=== PATIENT | female | born 1935 | race Caucasian/White ===

== ENCOUNTER 2016-07-07 01:21 | Emergency (ER) | payer MEDICARE, OTHER ==
[~2016-07-07] VITALS: Ht 160 cm; Wt 61.4 kg
[2016-07-07] VITALS (15 sets, daily range): BP systolic 70–139; BP diastolic 39–76; PULSE 48–104; RESP 12–16; O2SAT 95–98
[~2016-07-07 01:21] MED LIST: Diltiazem Hcl PO; FURO-128 PO; METO100T3 PO; MULT-56 PO; RIVA10TA PO; [UNRECOGNIZED DRUG - CODE] PO
[2016-07-07] MEDS ORDERED: Atropine 1 mg/10 mL (Code) Syringe ONE (01:32)
--- NOTE | 2016-07-07 01:32 | ED.REPORT ---
HPI-Dyspnea / Wheezing Date of Service Jul 07, 2016 ED Provider: Shelly Bedolla MD This is a 80 year old female with a history of CHF and atrial fibrillation with RVR brought to the ED by EMS complaining of generalized weakness that began 18 hours ago. Pt states she was unable to walk due to weakness. Also reports SOB with ambulation, chills, and bilateral lower extremity swelling that that began one week ago. Denies chest pain, dizziness, lightheadedness, change LOC, nausea , vomiting, or diaphoresis. En route pt was bradycardic at rate of 20-30s. Nursing Notes Stated Complaint: DYSPNEA Nursing Notes Reviewed: Yes Allergies: Coded Allergies: No Known Allergies (Unverified Allergy, Unknown, 06/22/14) Scheduled ([Diltiazem Hcl]) 180 MG CAP.ER.24H 360 MG PO DAILY Cyanocobalamin (Vitamin B-12) 500 Mcg Tab 1,000 MCG PO DAILY Furosemide (Lasix) 40 Mg Tablet 40 MG PO DAILY Metoprolol Tartrate (Metoprolol Tartrate) 100 Mg Tablet 100 MG PO BID Multivitamin (Daily Vitamin) 1 Each Tablet 1 EACH PO DAILY Rivaroxaban (Xarelto) 10 Mg Tablet 10 MG PO DAILY General Time Seen by MD: 01:31 Chief Complaint Shortness of breath Hx Obtained From: Patient Arrived By: Ambulance Sudden in Onset?: Yes Onset Occurred: 17 - 20 hours ago Symptom Duration: Since onset Severity: Current: No pain currently Pertinent Negative: Pt denies other symptoms Recent Healthcare: No recent doctor visit, No recent hospitalization Similar Sx Previous: No Past Medical History Past Medical History A-fib with RVR hypothyroidism hypertension CHRISTEL Reports: Congestive heart failure Past Surgical History Denies Smoking History Unknown if Ever Smoker Ambulatory Status Independent Review of Systems Constitutional: Reports: Chills, Weakness - generalized, Denies: Fever Respiratory: Reports: Shortness of breath, Denies: Non-productive cough Cardiovascular: Denies: Chest pain Skin: Denies Diaphoresis Complete sys rev & neg: except as marked. Neurologic: Denies: Change LOC, Dizziness, Lightheaded, Syncope Physical Exam Initial Vital Signs Vital Signs (First) Date Time Temp Pulse Resp B/P Pulse Ox O2 Delivery O2 Flow Rate FiO2 07/07/16 01:33 36.2 52 15 70/54 97 Nasal Cannula 2 - Initial VS: Reviewed Head / Eyes: Atraumatic, Normocephalic, PERRL ENT: Mucous membranes moist, Conjunctiva normal, No scleral icterus Skin: Warm, Dry, No cyanosis Neurologic: Alert, Oriented, Nonfocal Psychiatric: Mood/affect normal, Behavior normal, Normal thought content General/Constitutional: Awake, Alert Neck: Atraumatic, Supple, No meningismus, Full range of motion, No swelling, Non-tender, No masses Respiratory / Chest: Breath sounds NL, Breath sounds = bilat, No respiratory distress, No rales, No rhonchi, No wheezing, No retractions, No stridor Cardiovascular: No murmurs Heart Rate / Rhythm: Positive: Bradycardia Lower Ext Edema: Positive: Bilateral 1+ Interpretation & Diagnostics Lab Results Interpretation Result Diagram: 07/07/16 0141 07/07/16 0141 Test 07/07/16 01:41 White Blood Count 9.6th/mm3 (3.8-10.1) Red Blood Count 3.63mil/mm3 (3.90-5.20) Hemoglobin 11.0g/dL (12.0-15.6) Hematocrit 34.2% (35.0-46.0) Mean Corpuscular Volume 94.2fL (81-100) Mean Corpuscular Hemoglobin 30.3pg (27.0-35.0) Mean Corpuscular Hemoglobin Concent 32.2% (32.0-37.0) Red Cell Distribution Width 14.5% (12.3-15.4) Platelet Count 271bil/L (150-400) Neutrophils (%) (Auto) 65.4% (40-74) Lymphocytes (%) (Auto) 12.2% (14-46) Monocytes (%) (Auto) 11.0% (4-12) Eosinophils (%) (Auto) 10.2% (0-5) Basophils (%) (Auto) 0.9% (0-3) Prothrombin Time 11.9sec (8.1-12.5) Prothromb Time International Ratio 1.11ratio Sodium Level 134mEq/L (134-144) Potassium Level 5.0mEq/L (3.5-5.2) Chloride Level 94mEq/L (97-108) Carbon Dioxide Level 20mmol/L (18-29) Blood Urea Nitrogen 58mg/dL (8-27) Creatinine 3.88mg/dL (0.57-1.00) Estimat Glomerular Filtration Rate 16mL/min (>59) Glucose Level 157mg/dL (60-99) Calcium Level 9.5mg/dL (8.5-10.1) Total Bilirubin 0.6mg/dL (0.0-1.2) Aspartate Amino Transf (AST/SGOT) 35U/L (0-50) Alanine Aminotransferase (ALT/SGPT) 24U/L (0-32) Alkaline Phosphatase 132U/L (25-165) Troponin T 0.023ug/L (0.0-0.011) Pro-B-Type Natriuretic Peptide 7117pg/mL (0-738) Total Protein 7.8g/dL (6.4-8.4) Albumin 4.3g/dL (3.4-5.0) Digoxin Level 0.3nG/mL (0.9-2.0) ECG Interpretation ECG Interpretation: A-fib at a rate of 27 Time: 01:38 Interpreted by: ED physician ECG Interpretation: Atrial fibrillation at a rate of [address] elevation T-wave inversion in lead 3 and AVR X-Ray Chest Interpretation Chest Xray Interpretation: Cardiomegaly Interpretation / Wet Read by: Wet read ED physician NL X-Ray Chest Findings: No acute disease Re-Eval/Medical Decision Med Decision/Clinical Course 80-year-old female with extensive cardiac history including hypertension and CHF here with profound bradycardia and hypotension associated with shortness of breath. She had no associated chest pain and was mentating well. For this reason, I do not feel she needs to be transcutaneously paced as I do not think she will tolerated well, and I think that the sedation she would require for transcutaneous pacing would drop her pressure further. She was given atropine with no improvement of her symptoms, and then was started on dopamine with vast improvement of her vital signs. Her initial labs show a mildly elevated troponin, which could be the result of her new renal failure. Her potassium is normal at this time, so I do not feel the need to treat any electrolyte abnormality. Her CBC is unremarkable. I did discuss the case with , who did not recommend heparinizing her. We have no beds at our facility at this time, so I have transferred her to [facility]. She has been accepted by Dr. Champagne. She is amenable to transfer at this time. Since her vitals have stabilized on the dopamine, I feel that she is safe to transport by ALS and not helicopter. At this point, dropping a central line would delay her transfer to [facility]. I feel that this would further delay her care. Dr. Champagne is aware that she has only peripheral access at this time. Re-Evaluation/Progress #1: Time of Eval: 02:00 Re-Evaluation/Progress Note: Discussed need for admission, all questions addressed. Re-Evaluation/Progress #2: Time of Eval: 02:19 Re-Evaluation/Progress Note: HR 89 Consultation #1: Referral / Consult Name: Dennis Tang MD Consulted With: Cardiology Call Returned at: 01:42 Tire Servicer: Agrees with eval, Agrees with plan Consultation #2: Referral / Consult Name: Dennis Tang MD Consulted With: Cardiology Call Returned at: 02:49 [employer] Servicer: Agrees with eval, Agrees with plan Consultation #3: Call Returned at: 02:51 Note: Consult with [facility] transfer center Consultation #4: Call Returned at: 02:55 Note: Consult with Dr. Champagne at [facility], accepts transfer Counseled Regarding: Diagnosis, Lab results, Need for follow-up, Need for transfer Discharge & Departure Impression: Primary Impression: Bradycardia Additional Impressions: Hypotension Hypotension type: unspecified hypotension type Qualified Code: I95.9 - Hypotension, unspecified Cardiogenic shock Elevated troponin Disposition: Transfer, Acute Care Facility Receiving Hospital: [facility] Transfer Accepted at: 02:56 Patient Status: Stable, Stable for transfer Patient Informed: Yes Discharge Condition All VS Reviewed: Yes Condition: Stable Referrals: Dallas Caballero MD (PCP) Crit Care Except Billable Proc Time Spent: 30-74 minutes Services Performed: Patient management by me, Time spent at bedside, Reviewing test results, Reviewing imaging, Discussing patient care, Documentation in record, Time with fam/surrogate Scribe Attestation Portions of this note were transcribed by Alicia Pedersen. I, Dr. Bedolla personally performed the history, physical exam and medical decision-making; I reviewed and confirmed the accuracy of the information in the transcribed note. Signed by: chris Dumont. 07/06/2016, 02:00. Shelly Bedolla MD Jul 07, 2016 01:32 ALICIA PEDERSEN Jul 07, 2016 01:43
[2016-07-07 01:45] LABS: BASOPHILS % (AUTO) 0.9 % (0-3); EOSINOPHILS % (AUTO) 10.2 % (0-5); Mean Corpuscular Hemoglobin 30.3 pg (27.0-35.0); Mean Corpuscular Volume 94.2 fL (81-100); NEUTROPHILS % (AUTO) 65.4 % (40-74); Platelet Count 271 bil/L (150-400)
[2016-07-07] MEDS ORDERED: DOPamine 800 mg/250 mL D5W 800,000 MCG in IV Premix 1 EACH IV SCH (01:45)
[2016-07-07 02:02] LABS: TROPONIN T 0.023 ug/L (0.0-0.011)
[2016-07-07 03:38] LABS: INR 1.11 ratio
--- NOTE | 2016-07-07 09:15 | DRSVH ---
PROCEDURE: X-RAY CHEST ONE VIEW, PORTABLE ([id number]) INDICATIONS: shortness of breath TECHNIQUE: One view of the chest was acquired. COMPARISON: [facility], , CHEST 1VW (PORTABLE), 03/20/2014, 15:29. FINDINGS: Surgical changes and devices: None. Lungs and pleura: Mild edema is present and small left pleural effusion. No pneumothorax. Mediastinum: Mediastinal contours appear normal. Heart size is enlarged. Bones and chest wall: No suspicious bony lesions. Overlying soft tissues appear unremarkable. IMPRESSION: Mild pulmonary edema and small left pleural effusion. Dictated by: Vu Ling [facility] Interpreted: Andre Cadena MD on 07/07/2016 at 9:12 Transcribed by: LIZA on 07/07/2016 at 9:14 Approved by: Andre Cadena M.D. on 07/07/2016 at 9:57
== END 2016-07-07 04:03 | disposition short-term general hospital (02) ==
LOC: SED 01:21
DX: R00.1 Bradycardia, unspecified (principal); I95.9 Hypotension, unspecified; R57.0 Cardiogenic shock; R79.89 Other specified abnormal findings of blood chemistry; I11.0 Hypertensive heart disease with heart failure; I50.9 Heart failure, unspecified
CPT/HCPCS: 36415; 71010; 80053; 80162; 83880; 84439; 84443; 84484; 85025; 85610; 93005; 96374; 96375; 99291; J0461; J1265

== ENCOUNTER 2016-10-24 07:29 | Emergency (ER) | payer MEDICARE, OTHER ==
[~2016-10-24] VITALS: Ht 160 cm; Wt 68.0 kg
[2016-10-24] VITALS (8 sets, daily range): BP systolic 137–168; BP diastolic 84–105; PULSE 99–151; RESP 15–24; O2SAT 95–100
--- NOTE | 2016-10-24 07:43 | ED.REPORT ---
HPI-Trauma Minor / Fall Date of Service October 24, 2016 ED Provider: Padmini Romero MD Patient is an 81 year old female with a history of CHF, atrial fibrillation and hypertension who presents to the ED via EMS due to a ground level fall. Associated symptoms include non-cardiac chest pain and leg swelling. She denies losing consciousness, nausea, vomiting, fever, chills or shortness of breath. Patient describes the chest pain as dull and exacerbated with deep inhalation. The patient reports she has had leg swelling since last week. She states that while walking she tripped, fell and hit her chest. Nursing Notes Stated Complaint: FALL Chief Complaint: Dysrhythmia/Cardiac Nursing Notes Reviewed: Yes Allergies: Coded Allergies: No Known Allergies (Unverified Allergy, Unknown, 06/22/14) Scheduled ([Diltiazem Hcl]) 180 MG CAP.ER.24H 360 MG PO DAILY Cyanocobalamin (Vitamin B-12) 500 Mcg Tab 1,000 MCG PO DAILY Furosemide (Lasix) 40 Mg Tablet 40 MG PO DAILY Metoprolol Tartrate (Metoprolol Tartrate) 100 Mg Tablet 100 MG PO BID Multivitamin (Daily Vitamin) 1 Each Tablet 1 EACH PO DAILY Rivaroxaban (Xarelto) 10 Mg Tablet 10 MG PO DAILY General Time Seen by MD: 07:43 Chief Complaint Fall Hx Obtained From: Patient Arrived By: Ambulance Onset Occurred: Just prior to arrival Symptom Duration: Since onset Location: Chest Quality: Dull Associated with: Reports: Chest pain, Denies: Fever, Loss of consciousness, Nausea, Shortness of breath, Vomiting Recent Healthcare: Recent doctor visit Past Medical History Past Medical History A-fib with RVR hypothyroidism hypertension CHRISTEL Reports: Congestive heart failure Past Surgical History Denies Smoking History Unknown if Ever Smoker Ambulatory Status Independent Review of Systems Constitutional: Denies: Chills, Fever Respiratory: Denies: Non-productive cough, Shortness of breath Musculoskeletal: Reports: Extremity swelling (both legs) Neurologic: Denies: Change LOC Complete sys rev & neg: except as marked. Cardiovascular: Reports: Chest pain GI: Denies: Nausea, Vomiting Physical Exam Initial Vital Signs Vital Signs (First) Date Time Temp Pulse Resp B/P Pulse Ox O2 Delivery O2 Flow Rate FiO2 10/24/16 07:42 151 20 168/105 97 Room Air 10/24/16 08:22 Initial VS: Reviewed, Vital signs abnormal General/Constitutional: Awake, Alert, No acute distress Neck: Atraumatic, Full range of motion Head / Eyes: Atraumatic, Normocephalic, PERRL, EOMI RESPIRATORY/CHEST: right chest pain bibasilar rales Heart Rate / Rhythm: Positive: Irreg irregular rhythm Abdomen: Atraumatic, Soft, Non-tender Back: Atraumatic, Non-tender, No paraspinal tenderness Upper Extremity / MS: Atraumatic, Full range of motion LOWER EXTREMITIES: bilateral 3+ edema bruising to the left distal tibia Skin: Atraumatic, Color NL, No rash, Warm, Dry Neurologic: Oriented X3, Speech NL, No motor deficits, No sensory deficits Psychiatric: Affect NL, Mood NL Interpretation & Diagnostics Lab Results Interpretation Result Diagram: 10/24/16 0749 10/24/16 0749 Test 10/24/16 07:49 White Blood Count 12.2th/mm3 (3.8-10.1) Red Blood Count 4.09mil/mm3 (3.90-5.20) Hemoglobin 11.5g/dL (12.0-15.6) Hematocrit 35.9% (35.0-46.0) Mean Corpuscular Volume 87.8fL (81-100) Mean Corpuscular Hemoglobin 28.1pg (27.0-35.0) Mean Corpuscular Hemoglobin Concent 32.0% (32.0-37.0) Red Cell Distribution Width 16.8% (12.3-15.4) Platelet Count 383bil/L (150-400) Neutrophils (%) (Auto) 51.6% (40-74) Lymphocytes (%) (Auto) 10.3% (14-46) Monocytes (%) (Auto) 10.3% (4-12) Eosinophils (%) (Auto) 26.4% (0-5) Basophils (%) (Auto) 1.2% (0-3) Sodium Level 140mEq/L (134-144) Potassium Level 4.3mEq/L (3.5-5.2) Chloride Level 99mEq/L (97-108) Carbon Dioxide Level 23mmol/L (18-29) Blood Urea Nitrogen 34mg/dL (8-27) Creatinine 1.32mg/dL (0.57-1.00) Estimat Glomerular Filtration Rate 55mL/min (>59) Glucose Level 105mg/dL (60-99) Calcium Level 10.0mg/dL (8.5-10.1) Magnesium Level 2.3mg/dL (1.6-2.6) Total Bilirubin 0.7mg/dL (0.0-1.2) Aspartate Amino Transf (AST/SGOT) 26U/L (0-50) Alanine Aminotransferase (ALT/SGPT) 13U/L (0-32) Alkaline Phosphatase 235U/L (25-165) Troponin T < 0.010ug/L (0.0-0.011) Pro-B-Type Natriuretic Peptide 1998pg/mL (0-738) Total Protein 9.3g/dL (6.4-8.4) Albumin 4.6g/dL (3.4-5.0) ECG Interpretation ECG Interpretation: atrial fibrillation, rate 144 with increased QTc no acute changes Time: 07:52 Interpreted by: ED physician X-Ray Chest Interpretation Chest Xray Interpretation: IMPRESSION: No acute disease. Medial left apical opacity, technically non-specific. If clinically warranted, additional followup PA and lateral chest radiographs in 6 months could be performed to document stability and exclude neoplasm Chronic diffuse scarring/interstitial change. Cardiomegaly as before. Dictated by: Rakesh Montelongo M.D. on 10/24/2016 at 9:13 Approved by: Rakesh Montelongo M.D. on 10/24/2016 at 9:17 View: Portable, 1 view Interpretation / Wet Read by: Interpret - Radiologist Re-Eval/Medical Decision Med Decision/Clinical Course This is a chronically ill patient who had a mechanical fall. The patient is quite certain she did not pass out nor did she hit her head, she has felt it onto her chest and has right-sided chest pain. The patient did not take her morning medications. Her labs are all abnormal however they are improved for her since her last admission. The patient does not have any complaints of congestive heart failure. She has recently had some medication changes. The patient's atrial fibrillation was treated with her usual medications and came down to a reasonable level. The patient has been followed closely by her primary care physician. The patient does not have any complaints or signs of head trauma or neck or back trauma or extremity trauma. She is also certain that she has not had chest pain until after her fall. Re-Evaluation/Progress : Time of Eval: 09:37 Patient Status: Condition improved Re-Evaluation/Progress Note: Discussed plan for discharge. The patient understands and agrees to the plan for discharge. All questions were adderssed. Counseled Regarding: Diagnosis, Lab results, Need for follow-up, When/why to return to ED Discharge & Departure Impression: Primary Impression: Fall Encounter type: initial encounter Qualified Code: W19.XXXA - Unspecified fall, initial encounter Additional Impressions: Chronic atrial fibrillation Contusion of chest Encounter type: initial encounter Laterality: right Qualified Code: S20.211A - Contusion of right front wall of thorax, initial encounter Chronic CHF Congestive heart failure type: unspecified congestive heart failure type Qualified Code: I50.9 - Heart failure, unspecified Disposition: Home Discharge Condition All VS Reviewed: Yes Condition: Stable Additional Instructions: We gave you your normal medications of Lisinopril, Metoprolol and Lasix. Take your other medications as usual. You can take Tylenol 650mg up to 4x a day for you pain. Follow up with your primary care physician next week. Return to the emergency department if you develop any new or worsening symptoms including fever or shortness of breath. Referrals: Dallas Caballero MD (PCP) Deanna Attestation Portions of this note were transcribed by Ivette Zambrano. I, Dr. Romero personally performed the history, physical exam and medical decision-making; I reviewed and confirmed the accuracy of the information in the transcribed note. Signed by: Deanna Rebolledo, 10/24/16 and 6285 copies to: Dallas Caballero MD, Jena M MD October 24, 2016 07:43 Eladia Zambrano October 24, 2016 07:53
[2016-10-24] MEDS ORDERED: Furosemide 10 mg/mL 4 mL Inj IVPUSH ONE (07:50)
[2016-10-24 07:52] LABS: BASOPHILS % (AUTO) 1.2 % (0-3); EOSINOPHILS % (AUTO) 26.4 % (0-5); MONOCYTES % (AUTO) 10.3 % (4-12); Mean Corpuscular Hemoglobin 28.1 pg (27.0-35.0); Mean Corpuscular Volume 87.8 fL (81-100); NEUTROPHILS % (AUTO) 51.6 % (40-74); Platelet Count 383 bil/L (150-400)
[2016-10-24] MEDS: MeTOProlol 1 mg/mL 5 mL Inj IVPUSH SCH ×3 (08:07→08:28)
[2016-10-24 08:33] LABS: Magnesium 2.3 mg/dL (1.6-2.6)
[2016-10-24 08:41] LABS: TROPONIN T < 0.010 ug/L (0.0-0.011)
[2016-10-24] MEDS ORDERED: MeTOProlol 1 mg/mL 5 mL Inj IVPUSH ONE (09:05)
--- NOTE | 2016-10-24 09:19 | DRSVH ---
PROCEDURE: X-RAY CHEST, TWO VIEWS ([id number]) INDICATIONS: CHEST PAIN TECHNIQUE: 2 views of the chest were acquired. COMPARISON: [facility], CR, CHEST 1VW (PORTABLE), 03/20/2014, 15:29. [facility], CR, XR CHEST 1VW (PORTABLE), 07/07/2016, 1:57. FINDINGS: Surgical changes and devices: None. Lungs and pleura: No pleural effusions or pneumothorax. There is poorly defined, pleural-based or florence bpleural medial left apical opacity, which is technically nonspecific and measures 1 cm. This appears unchanged to slightly less conspicuous since the prior study dated 07/07/16 Chronic diffuse intersti tial changes Mediastinum: Mediastinal contours are normal. Heart size is enlarged as before. Bones and chest wall: No suspicious bony abnormalities. There is diffuse osteopenia, and the vertebr al bodies are not well-visualized on the lateral projection. Soft tissues appear unremarkable. IMPRESSION: No acute disease. Medial left apical opacity, technically non-specific. If clinically warranted, additional followup PA and lateral chest radiographs in 6 months could be performed to document stability and exclude neopl asm Chronic diffuse scarring/interstitial change. Cardiomegaly as before. Dictated by: Rakesh Montelongo M.D. on 10/24/2016 at 9:13 Approved by: Rakesh Montelongo M.D. on 10/24/2016 at 9:17
== END 2016-10-24 10:40 | disposition home or self-care (01) ==
LOC: SED 07:29 → EDBD 07:29 → EDUNIT# 07:29 → SED 10:40
DX: S20.211A Contusion of right front wall of thorax, initial encounter (principal); W01.198A Fall on same level from slipping, tripping and stumbling with subsequent striking against other object, initial encounter; Y93.01 Activity, walking, marching and hiking; Y92.89 Other specified places as the place of occurrence of the external cause; Y99.8 Other external cause status; M79.89 Other specified soft tissue disorders; I11.0 Hypertensive heart disease with heart failure; I50.9 Heart failure, unspecified; I48.2 Chronic atrial fibrillation; E03.9 Hypothyroidism, unspecified
CPT/HCPCS: 36415; 71020; 80053; 83735; 83880; 84484; 85025; 93005; 96374; 96375; 96376; 99285; J1940

== ENCOUNTER 2017-03-02 12:38 | Inpatient (IN) | payer MEDICARE, OTHER ==
[~2017-03-02] VITALS: Ht 161.9 cm; Wt 81.2 kg
[2017-03-02] VITALS (10 sets, daily range): BP systolic 123–146; BP diastolic 73–92; PULSE 128–160; RESP 16–31; O2SAT 94–98
[2017-03-02 13:22] LABS: BASOPHILS % (AUTO) 0.7 % (0-3); EOSINOPHILS % (AUTO) 36.5 % (0-5); MONOCYTES % (AUTO) 8.3 % (4-12); Mean Corpuscular Hemoglobin 28.2 pg (27.0-35.0); Mean Corpuscular Volume 88.8 fL (81-100); NEUTROPHILS % (AUTO) 45.8 % (40-74); Platelet Count 328 bil/L (150-400)
[2017-03-02 13:43] LABS: TROPONIN T < 0.010 ug/L (0.0-0.011)
[2017-03-02 13:53] LABS: Magnesium 2.1 mg/dL (1.6-2.6)
--- NOTE | 2017-03-02 14:13 | DRSVH ---
PROCEDURE: X-RAY LEFT FEMUR, TWO VIEWS ([id number]) INDICATIONS: PAIN/DISTAL ROTATION AND SHORTENING. TECHNIQUE: 2 views of the femur were acquired. COMPARISON: None. FINDINGS: Bones: There is a comminuted, displaced intertrochanteric fracture of the left femur. The femoral hea d remains articulated with the acetabulum. Visualized portions of the pelvis are intact. Visualized p ortions of the inferior femur are intact. Soft tissues: A circumscribed soft tissue calcification is present in the mid thigh. IMPRESSION: Displaced, comminuted, left intertrochanteric fracture. Dictated by: Debbie Anguiano M.D. on 03/02/2017 at 13:10 Approved by: Debbie Anguiano M.D. on 03/02/2017 at 13:11
--- NOTE | 2017-03-02 14:15 | DRSVH ---
PROCEDURE: X-RAY CHEST ONE VIEW, PORTABLE ([id number]) INDICATIONS: atrial fibrillation with rapid response TECHNIQUE: One view of the chest was acquired. COMPARISON: [facility], CR, XR CHEST 2VW, 10/24/2016, 8:46. FINDINGS: Surgical changes and devices: None. Lungs and pleura: There is prominence of the interstitium. No focal airspace opacities. No pleural ef fusion or pneumothorax. Mediastinum: There is a questionable lobulated soft tissue mass at the medial aspect of the left apex . Heart size is markedly enlarged. Bones and chest wall: No suspicious bony lesions. Overlying soft tissues appear unremarkable. IMPRESSION: 1. Cardiomegaly and interstitial prominence suspicious for fluid overload. 2. Questionable lobulated mass at the medial left apex. If further characterization is warranted, CT of the chest would be helpful to exclude neoplasm. Dictated by: Debbie Anguiano M.D. on 03/02/2017 at 13:11 Approved by: Debbie Anguiano M.D. on 03/02/2017 at 13:13
--- NOTE | 2017-03-02 14:18 | DRSVH ---
PROCEDURE: X-RAY LEFT HIP COMPLETE, MINIMUM TWO VIEWS ([id number]) INDICATIONS: PAIN/DISTAL ROTATION AND SHORTENING. TECHNIQUE: AP pelvis with lateral view(s) of the left hip(s). COMPARISON: [facility], CR, XR FEMUR 2VW LT, 03/02/2017, 13:37. FINDINGS: Bones: There is an intertrochanteric fracture with mild displacement. There are superior and inferio r pubic ramal fractures, and possible right pubic fracture at the pubic symphysis. No suspicious bon y lesions. Soft tissues: The visualized bowel gas pattern is normal. No suspicious soft tissue calcifications. IMPRESSION: 1. Intertrochanteric fracture of the left hip. In the absence of trauma, cannot exclude a pathologica l fracture. 2. Left superior and inferior pubic humeral fracture. 3. Possible right pubic fracture at the pubic symphysis. Dictated by: Andre Cadena M.D. on 03/02/2017 at 14:11 Approved by: Andre Cadena M.D. on 03/02/2017 at 14:16
[2017-03-02] MEDS ORDERED: HYDROmorphone 1 mg/mL Inj IVPUSH ONE (14:50)
[2017-03-02] MEDS ORDERED: Diltiazem 5 mg/mL 5 mL Inj IVPUSH ONE (15:10)
[2017-03-02] MEDS ORDERED: Lidocaine 2% 6mL Topical Jelly TOPICAL ONE (15:10)
[2017-03-02] MEDS ORDERED: HYDROmorphone 0.5 mg/0.5 mL iSecure Syringe IVPUSH PRN (15:10)
[2017-03-02] MEDS ORDERED: Ondansetron 2 mg/mL 2 mL Inj IVPUSH ONE (15:10)
--- NOTE | 2017-03-02 15:10 | ED.REPORT ---
HPI-Hip/Pelvis Prob/Inj Date of Service Mar 02, 2017 ED Provider: Damian Arnold MD Pt is a 81 year old female with a history of afib with RVR repisodes, dementia, CHF, and hypertension on Xarelto who presents to the ED via EMS complaining of left hip pain s/p falling on hardwood floor onset this morning. She is unsure as to how or when it started, but believes she tripped on her cat, and states that she got help immediately. Additional symptoms include left leg pain and lower leg edema that is baseline. She denies chest pain, SOB, fever, chills, diaphoresis, or numbness/tingling in her legs and feet. Nursing Notes Stated Complaint: LEFT HIP PAIN Chief Complaint: Extremity Trauma Nursing Notes Reviewed: Yes ([facility] not reconciled - EMR indicates anticoagulated on Xarelto) Allergies: Coded Allergies: No Known Allergies (Unverified Allergy, Unknown, 03/02/17) Scheduled Aspirin (Aspirin) 325 Mg Tablet 325 MG PO QAM Cyanocobalamin (Vitamin B-12) (Vitamin B-12) 1,000 Mcg Tablet 1,000 MCG PO QAM Diltiazem ER (Diltiazem ER) 240 Mg Capsule.er 240 MG PO QAM Furosemide (Furosemide) 40 Mg Tablet 40 MG PO BIDWM Levothyroxine (Levothyroxine) 125 Mcg Tablet 125 MCG PO QAM Multivitamin (Once Daily) 1 Each Tablet 1 EACH PO DAILYWD General Time Seen by Provider: 15:00 Chief Complaint Hip injury left Hx Obtained From: Patient Arrived By: Ambulance Onset Occurred: 1 - 4 hours ago Symptom Duration: Constant Caused by: Fall on ground Quality: Painful Severity: Current: Mild Severity: Maximum: Moderate Recent Healthcare: Recent doctor visit Similar Sx Previous: No Past Medical History Past Medical History A-fib with RVR (EMR indicates Xarelto use) hypothyroidism hypertension CHRISTEL arthritis Reports: Congestive heart failure Past Surgical History Bilateral cataract surgery - 2010 Reports: Appendectomy Smoking History Unknown if Ever Smoker Ambulatory Status Independent Review of Systems Musculoskeletal: Reports: Extremity pain (Left leg pain ), Extremity swelling ( lower leg edema that is baseline ), Joint pain (Left hip pain) Skin: Denies Diaphoresis Neurologic: Denies: Numbness Complete sys rev & neg: except as marked. Respiratory: Denies: Shortness of breath Cardiovascular: Denies: Chest pain Physical Exam Initial Vital Signs Vital Signs (First) Date Time Temp Pulse Resp B/P Pulse Ox O2 Delivery O2 Flow Rate FiO2 03/02/17 13:01 149 22 145/78 96 Room Air 03/02/17 14:43 36.5 03/02/17 15:20 2 Initial VS: Reviewed, Vital signs abnormal Head / Eyes: Atraumatic Neck: Supple, Full range of motion Abdomen / GI: Soft, Non-tender Back: No CVA tenderness Lymphatic: No lymphadenopathy Lower Extremity / Pelvis / MS: Neurologic intact Marked erythema and warmth to bilateral lower leg extremities, do not suspect cellulitis Lower leg extremities externally rotated and shortened Intact distal pulses No open wounds General/Constitutional: Awake, Not toxic appearing Appearance / Presentation: Positive: Obese Pleasantly demented Smiling No useful information given about what happened, theorized she tripped No visible trauma to upper extremities, head, or neck Respiratory / Chest: Atraumatic, Breath sounds NL, Breath sounds = bilat, No respiratory distress Cardiovascular: Heart rate NL, No murmurs Heart Rate / Rhythm: Positive: Tachycardia Interpretation & Diagnostics CT HIP: Impression: Moderately displaced, comminuted fractures are seen involving left intertrochanteric femur as well as the left proximal femoral shaft. Fractures involving the left pubis and the right pubis are seen, which are more displaced on the left than on the right. Dictated by: Cecil Zafar M.D. on 03/02/2017 at 15:57 Approved by: Cecil Zafar M.D. on 03/02/2017 at 16:01 Lab Results Interpretation Result Diagram: 03/02/17 1310 03/02/17 1310 Test 03/02/17 13:10 03/02/17 15:15 03/02/17 15:18 White Blood Count 19.3th/mm3 (3.8-10.1) Red Blood Count 3.76mil/mm3 (3.90-5.20) Hemoglobin 10.6g/dL (12.0-15.6) Hematocrit 33.4% (35.0-46.0) Mean Corpuscular Volume 88.8fL (81-100) Mean Corpuscular Hemoglobin 28.2pg (27.0-35.0) Mean Corpuscular Hemoglobin Concent 31.7% (32.0-37.0) Red Cell Distribution Width 17.9% (12.3-15.4) Platelet Count 328bil/L (150-400) Neutrophils (%) (Auto) 45.8% (40-74) Lymphocytes (%) (Auto) 8.4% (14-46) Monocytes (%) (Auto) 8.3% (4-12) Eosinophils (%) (Auto) 36.5% (0-5) Basophils (%) (Auto) 0.7% (0-3) Prothrombin Time 11.0sec (8.1-12.5) Prothromb Time International Ratio 1.03ratio Activated Partial Thromboplast Time 27.6sec (22.8-33.0) Sodium Level 140mEq/L (134-144) Potassium Level 3.7mEq/L (3.5-5.2) Chloride Level 100mEq/L (97-108) Carbon Dioxide Level 20mmol/L (18-29) Blood Urea Nitrogen 28mg/dL (8-27) Creatinine 1.20mg/dL (0.57-1.00) Estimat Glomerular Filtration Rate 62mL/min (>59) Glucose Level 142mg/dL (60-99) Calcium Level 9.6mg/dL (8.5-10.1) Magnesium Level 2.1mg/dL (1.6-2.6) Total Bilirubin 0.8mg/dL (0.0-1.2) Aspartate Amino Transf (AST/SGOT) 23U/L (0-50) Alanine Aminotransferase (ALT/SGPT) 12U/L (0-32) Alkaline Phosphatase 173U/L (25-165) Troponin T < 0.010ug/L (0.0-0.011) Pro-B-Type Natriuretic Peptide 4443pg/mL (0-738) Total Protein 8.6g/dL (6.4-8.4) Albumin 4.0g/dL (3.4-5.0) Thyroid Stimulating Hormone (TSH) 3.300uIU/mL (0.450-4.500) Hold Capps Top Tube Received (Received) Urine Color Yellow (YELLOW) Urine Appearance Hazy (CLEAR,HAZY) Urine pH 5.5 (5.0-8.0) Urine Specific [place] 1.020 (1.003-1.035) Urine Protein 30mg/dL (NEG,TRACE) Urine Glucose (UA) Negativemg/dL (NEGATIVE) Urine Ketones Negativemg/dL (NEGATIVE) Urine Occult Blood Negative (NEGATIVE) Urine Nitrite Negative (NEGATIVE) Urine Bilirubin Negative (NEGATIVE) Urine Urobilinogen Normalmg/dL (NORMAL) Urine Leukocyte Esterase Negative (NEGATIVE) Urine RBC 0-2/hpf (0-2) Urine WBC 0-5/hpf (0-5) Urine Epithelial Cells None/hpf (NONE-MOD) Urine Crystals None seen (NONE SEEN) Urine Bacteria Few/hpf (NONE-FEW) Urine Hyaline Casts None/lpf (NONE) Urine Granular Casts None seen (NONE SEEN) Urine Waxy Casts None seen (NONE SEEN) Urine Red Blood Cell Casts None seen (NONE SEEN) Urine White Blood Cell Casts None seen (NONE SEEN) Urine Mucus None seen (None Seen) Urine Trichomonas None seen (NONE SEEN) Urine Yeast None (NONE SEEN) Urinalysis Comment None Urine Culture Reflexed Not indicated Lab Results Interpretation: CBC positive leukocytosis CMP trace renal insufficiency BNP elevated Troponin negative UA negative ECG Interpretation ECG Interpretation: Atrial fibrillation with rapid ventricular response, rate 131 No acute ischemic changes Time: 13:20 Interpreted by: ED physician X-Ray Chest Interpretation Chest Xray Interpretation: IMPRESSION: 1. Cardiomegaly and interstitial prominence suspicious for fluid overload. 2. Questionable lobulated mass at the medial left apex. If further characterization is warranted, CT of the chest would be helpful to exclude neoplasm. Dictated by: Debbie Anguiano M.D. on 03/02/2017 at 13:11 Approved by: Debbie Anguiano M.D. on 03/02/2017 at 13:13 View: Portable, 1 view Interpretation / Wet Read by: Interpret - Radiologist X-Ray Interpretation Xray Interpretation: Left Hip X-Ray: IMPRESSION: 1. Intertrochanteric fracture of the left hip. In the absence of trauma, cannot exclude a pathological fracture. 2. Left superior and inferior pubic humeral fracture. 3. Possible right pubic fracture at the pubic symphysis. Dictated by: Andre Cadena M.D. on 03/02/2017 at 14:11 Approved by: Andre Cadena M.D. on 03/02/2017 at 14:16 X-Ray Ordered: Hip left Interpretation / Wet Read by: Interpret - Radiologist Xray Interpretation: Left Femur X-Ray: IMPRESSION: Displaced, comminuted, left intertrochanteric fracture. Dictated by: Debbie Anguiano M.D. on 03/02/2017 at 13:10 Approved by: Debbie Anguiano M.D. on 03/02/2017 at 13:11 X-Ray Ordered: Femur left Interpretation / Wet Read by: Jodie - Angie Re-Eval/Medical Decision Med Decision/Clinical Course This is a pleasant 81-year-old female who is demented and unable to provide much history, who is brought by EMS following a reported ground level fall where she allegedly tripped. Patient cannot provide any details about the injury. Her only complaint is left hip pain. She denies striking her head, denies any other complaints. Records indicate the patient is anticoagulated on Xarelto but the patient does not recall her medications. He is found also be in atrial fibrillation with rapid ventricular response with a rate in the 140s initially. EKG deficits rapid rate, but no skin changes. Patient denies a sense shortness of breath chest pain, but has chronic, severe edema of both lower extremities. Her first pass her which she has had to keep her legs up for several hours at a time. There is a faint erythema to the slows extremities as well, but it is bilateral, nontender, and I doubt it represents cellulitis or infection. Patient does have clinical findings of a left hip fracture. No other signs of trauma are evident. There is no visible signs of trauma to head, no neck tenderness, no chest or upper extremity injury. No injuries to the other extremity. Plain radiographs do demonstrate left intertrochanteric hip fracture, and possible pubic fractures, so CT imaging was obtained that confirms the intertrochanteric hip fracture, and pubic rami fractures, but no other significant injury. Lab work was notable for significant leukocytosis, but no clear findings of a source of infection are evident. Again the patient has erythema and warmth of both lower extremities, but not tender to large. She does not appear septic. The leukocytosis is most likely stressed induced, both continue to monitor. The patient's insignificant A atrial fibrillation with rapid ventricular response required multiple, repeated doses of diltiazem-and ultimately a diltiazem drip was being initiated to attempt to obtain better rate control. The patient is being admitted to the medicine service, and efforts will continue to manage the age for fibrillation. The patient's last known oral intake is unknown, but the patient is anticoagulated on Xarelto which will need to be held prior to any surgical intervention anyway. Source of Hx: Old records Re-Evaluation/Progress : Time of Eval: 15:00 Re-Evaluation/Progress Note: Discussed plan for admission. Pt understands and agrees with plan. All questions addressed. Consultation #1: Referral / Consult Name: Arias Lara MD Consulted With: Hospitalist Call Returned at: 16:02 Copy Preparer: Will see patient, Agrees with plan, Accepts admit Note: Discussed pt's case with resident for hospitalist, Dr. Lara. Consultation #2: Referral / Consult Name: Sharan Mercedes DO Consulted With: Orthopedic Call Returned at: 16:32 Copy Preparer: Agrees with eval, Agrees with plan Note: Discussed pt's case with orthopedic surgeon, Dr. Mercedes. Counseled Regarding: Diagnosis, Lab results, Need for admission Discharge & Departure Impression: Primary Impression: Intertrochanteric fracture of left hip Encounter type: initial encounter Fracture type: closed Qualified Code: S72.142A - Displaced intertrochanteric fracture of left femur, initial encounter for closed fracture Additional Impressions: Bilateral pubic rami fractures Encounter type: initial encounter Fracture type: closed Qualified Code: S32.591A - Other specified fracture of right pubis, initial encounter for closed fracture Anticoagulated by anticoagulation treatment Atrial fibrillation with rapid ventricular response Disposition: ADMITTED TO HOSPITAL Discharge Condition All VS Reviewed: Yes Condition: Stable Referrals: Dallas Caballero MD (PCP) Crit Care Except Billable Proc Time Spent: 30-74 minutes Services Performed: Patient management by me, Time spent at bedside, Reviewing test results, Reviewing imaging, Discussing patient care, Documentation in record Critical Care Notes: Management of tachydysrhythmia Scribe Attestation Portions of this note were transcribed by Iesha Cantu. I, Dr. Arnold, personally performed the history, physical exam and medical decision-making; I reviewed and confirmed the accuracy of the information in the transcribed note. Signed by: Deanna Guzman, 03/02/17. copies to: Dallas Caballero MD, Matthew F MD Mar 02, 2017 15:10 Iesha Cantu Mar 02, 2017 15:15
[2017-03-02] MEDS ORDERED: Diltiazem Inj 125 MG in Dextrose 5% 100 ML IV SCH (15:24)
--- NOTE | 2017-03-02 16:03 | DRSVH ---
PROCEDURE: CT HIP LEFT W/O CONTRAST (60105) INDICATIONS: trauma fx TECHNIQUE: Noncontrast 3 mm axial sections acquired through the bony pelvis. Additional 3 mm axial sections acq uired through the symptomatic hip joint, with coronal and sagittal reformats. COMPARISON: [facility], CR, XR FEMUR 2VW LT, 03/02/2017, 13:37. [facility], CR, XR CHEST 1VW (PORTABLE), 03/02/2017, 13:37. [facility], CR, XR HIP 2VW LT, 03/02/2017, 13:37. FINDINGS: Image quality: Excellent. Bones: There is a comminuted, moderately displaced fracture involves the intertrochanteric region as well as the proximal left femoral shaft. There is a mildly displaced fracture seen involving left pubis. A subtle, minimally displaced fractu re is also seen involving the right pubis. The underlying bones are osteopenic. There is no hip dislocation seen. No suspicious lytic or blast ic lesions are seen. Soft tissues: Surrounding inflammatory changes are seen. Mild generalized body wall edema is seen. There is a Martins catheter seen. Atherosclerotic calcification is noted. Impression: Moderately displaced, comminuted fractures are seen involving left intertrochanteric femu r as well as the left proximal femoral shaft. Fractures involving the left pubis and the right pubis are seen, which are more displaced on the left than on the right. Dictated by: Cecil Zafar M.D. on 03/02/2017 at 15:57 Approved by: Cecil Zafar M.D. on 03/02/2017 at 16:01
[2017-03-02 16:06] LABS: APPEARANCE,URINE HAZY (CLEAR,HAZY); COLOR,URINE YELLOW (YELLOW); OCCULT BLOOD,URINE NEGATIVE (NEGATIVE); PH,URINE 5.5 (5.0-8.0); UROBILINOGEN,URINE NORMAL (NORMAL)
[2017-03-02] MEDS ORDERED: LEVO125T6 PO (16:06)
[2017-03-02] MEDS ORDERED: DILT240C87 PO (16:06)
[2017-03-02] MEDS ORDERED: FURO40TA4 PO (16:06)
[2017-03-02] MEDS ORDERED: ASPI325T32 PO (16:06)
[2017-03-02] MEDS ORDERED: CYAN10008 PO (16:07)
[2017-03-02] MEDS ORDERED: MULT-666 PO (16:07)
[2017-03-02 16:09] LABS: INR 1.03 ratio
[2017-03-02] MEDS ORDERED: Ondansetron 2 mg/mL 2 mL Inj IVPUSH PRN (16:10)
[2017-03-02] MEDS ORDERED: 0.9% Sodium Chloride 1,000 ML IV SCH ×2 (16:10→17:10)
[2017-03-02] MEDS ORDERED: Polyethylene Glycol (PEG) 17 Gm Powder PO PRN (16:10)
[2017-03-02] MEDS ORDERED: Alum-Mag Hydrox-Simeth 30 mL Suspension PO PRN (16:10)
[2017-03-02] MEDS ORDERED: 0.9% Sodium Chloride 1,000 ML IV ONE (16:20)
[2017-03-02] MEDS: Diltiazem HCl 125 MG in 0.9% Sodium Chloride 100 ML, Pharmacy To Mix 1 EA IV SCH (17:23)
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
--- NOTE | 2017-03-02 19:15 | NUR ---
Admit Pt admitted to [facility] from the ED. A&O X3, answers questions appropriately. Diltiazem drip running @ 12mls/hr. Stated 4/10 L hip pain but denies need for pain medication. Bilateral lower extremities are red and swollen. Painful to roll back and forth in the bed. Using 2L NC. HR often into the 140s. Report given to jeffery KRUGER.
--- NOTE | 2017-03-02 19:23 | NUR ---
home medication list home medication list obtained per primary MD list from visit on 02/23/17 and from cardiology visit in November 2016 and per [facility]. primary md list has losartan and metoprolol on list which patient denies taking. per cardiology list patient on torsemide. patient denies taking torsemide, states "I take furosemide". patient denies taking xarelto, digoxin, metoprolol or torsemide. confirms taking diltiazem and other medications as entered in home medication list.
[2017-03-03] VITALS (7 sets, daily range): BP systolic 119–139; BP diastolic 62–75; PULSE 99–122; RESP 18–28; O2SAT 96–97
--- NOTE | 2017-03-03 00:59 | CONS ---
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 HISTORY OF PRESENT ILLNESS: The patient is an 81-year-old female who fell at home today, perhaps tripping over her cat, injuring her left hip. She normally lives at home with her sister and uses a walker occasionally. Her sister states that she has been admitted for congestive heart failure two times recently and has been having some difficulty with occasional hip pain. PAST MEDICAL HISTORY: Significant for atrial fib, hypertension, and congestive heart failure. PAST SURGICAL HISTORY: Appendectomy. PHYSICAL EXAMINATION: Blood pressure 145/88, pulse rate 160, respirations 16, temperature 36.8. She is alert and cooperative, in no acute distress. Her left hip has pain with any attempt at range of motion. Her left lower extremity is shortened and externally rotated. She has lymphedema and pitting edema from her foot all the way up to the thigh bilaterally. Her feet are warm and pink with dorsalis pedis pulse +1. She has normal sensation to light touch. X-rays demonstrate a left intertrochanteric hip fracture, as well as CT scan demonstrating a nondisplaced pubic ramus fracture. ASSESSMENT: 1. Left intertrochanteric hip fracture with pubic rami fracture. 2. Atrial fibrillation with rapid ventricular response, as well as congestive heart failure. PLAN: I believe the patient needs to be medically optimized prior to surgery with rate control of her AFib and management of her congestive heart failure. Hopefully, we can plan for surgical treatment tomorrow. I discussed this with her sister, Natalie Kumar, as well as the night hospitalist. Will place the patient n.p.o. after midnight in hopes of surgical treatment tomorrow.
[2017-03-03] MEDS: Diltiazem HCl 125 MG in 0.9% Sodium Chloride 100 ML, Pharmacy To Mix 1 EA IV SCH ×2 (02:07→23:39)
[2017-03-03] MEDS: HYDROmorphone 0.5 mg/0.5 mL iSecure Syringe IVPUSH PRN ×2 (03:38→17:41)
[2017-03-03 03:52] LABS: BASOPHILS % (AUTO) 0.8 % (0-3); MONOCYTES % (AUTO) 10.4 % (4-12); Mean Corpuscular Hemoglobin 27.9 pg (27.0-35.0); Mean Corpuscular Volume 89.8 fL (81-100); NEUTROPHILS % (AUTO) 66.2 % (40-74); Platelet Count 268 bil/L (150-400)
--- NOTE | 2017-03-03 03:58 | NUR ---
AFIB RVR Patient's rate was sustaining in the 150s and increasing to 170s. Patient was on diltiazem gtt and it was titrated to 15. MD consulted and ordered PO diltiazem to be given with gtts continuing to run. Patient tolerated well with pressures remaining stable and rate decreasing to 90-110s. Patient has been asymptomatic with this HR. Reports increasing pain over night and was given dilaudid. She presents as somewhat anxious and has been obsessing over talking with her sister. She states she does not know if she wants to have surgery here as she is wanting to go to [place], "that is where they take my insurance." Patient also appears to have some confusion but is able to cover well for this deficit. Patient was put in touch with her sister and this seemed to decrease the anxiety. Will continue to monitor.
--- NOTE | 2017-03-03 11:00 | NUR ---
Social Work: Initial Assessment/Multidisciplinary Rounds D: Per EMR review, pt is an 81 year old female admitted for left hip fracture, pelvic fracture, AFIB. Patient is Medicare with [employer]; pt states she has no LTC or VA benefits. PCP is Dallas Caballero MD. NOK is Natalie Oliver, sister, . Advanced directives completed- OUTSIDE SOLAR SALES CONSULTANT requested copy for chart. Readmit socre is low, 06/22. Pt discussed in Multidisciplinary rounds. Capacity for self care discussed; patient assists her sister at home with chores and meal prep. The patient will likely require skilled rehab after discharge as it is anticipated patient will undergo ortho surgery once pt's HR is controlled. Provider will place a CM order to explore SNF with the patient. OUTSIDE SOLAR SALES CONSULTANT met with the patient at bedside. Social work/dcp role explained, contact information and discharge planning checklist provided. See initial assessment. Patient confirms she lives with her sister, Elisa, in [place]. The home is a three story home with the main living quarters on the first floor; there are 5 steps the patient must ambulate to get into the home. Patient reports no issues in the past navigating stairs. Patient has a FWW that she occasionally uses. She does not drive and relies on her other sister, Natalie, or public transportation. Patient confirms that she provides support to her sister at home assisting with chores and meals. OUTSIDE SOLAR SALES CONSULTANT introduced the topic of discharge planning and discharge possibilities including SNF. Patient states that she was at [facility] in the past and that "I was impressed with the care." The then goes on to state that "I won't go back" and "I don't need that, I'm going home." OUTSIDE SOLAR SALES CONSULTANT discussed safety surrounding discharge especially if patient has surgery to repair her hip. She does not feel that she will need extra help and minimizes the care she will likely need. Patient declined to review the [facility] SNF CHOICE LIST OFFERED by OUTSIDE SOLAR SALES CONSULTANT. A: Pt who will likely require SNF placement after discharge for further strengthening and progression to PLOF. P: Evolving; OUTSIDE SOLAR SALES CONSULTANT to continue to follow patient's clinical course and assist with safe discharge planning per the recommendations of hospitalist, ortho providers and PT. Patient is resistant to the idea of SNF at this time. ADI Turner Addendum: 03/03/17 at 1128 by PANKAJ LACEY SS Amended: Marcella added.
--- NOTE | 2017-03-03 11:43 | CONS ---
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 HISTORY OF PRESENT ILLNESS: The patient is an 81-year-old woman with a history of atrial fibrillation, hypothyroidism, osteoarthritis, and hypertension. Also with history of congestive heart failure in the past. She had an unwitnessed ground level fall and left leg pain. Apparently she tripped. She uses a walker for ambulation, however she had not been using it for several weeks. There was no loss of consciousness or head trauma. X-rays revealed a left intertrochanteric fracture as well as left and right pubic rami fractures. She was in significant pain at the time of admission but apparently she feels fairly good at this time. She used to be on Xarelto in the past but is no longer and is only taking aspirin at this time. She is in atrial fibrillation at this time. She has also been seen in [facility]iology [facility] in the summer. She used to be on metoprolol tartrate but was also on diltiazem 240 daily. In the Cardiology Clinic she was actually on both metoprolol tartrate 100 b.i.d. as well as long-acting diltiazem. I do not see that any medication adjustments were made at that time. In that office visit her heart rate was 104 beats per minute. She is currently in the hospital with atrial fibrillation with somewhat higher rates. She has been placed on a diltiazem drip, which has not been increased in maximum dose. She is on short-acting diltiazem, which has spread to go to every 6 hours at this time, matching her long-acting dose. She is currently not on any anticoagulation. Today, she says she feels fine. She denies increased shortness of breath, chest pain, orthopnea, or PND. She has chronic edema of her legs which has not changed. She is denying any significant pain at this time. When we talked to her about going to the OR today she said her son was coming in and she wanted to leave and go down to [place]. PAST MEDICAL HISTORY/PROBLEM LIST: 1. History of atrial fibrillation. Previously on anticoagulants on Xarelto but now only taking aspirin. 2. Hypothyroidism. 3. Hypertension. 4. Osteoarthritis. 5. History of congestive history. 6. Chronic kidney disease. MEDICATIONS: In the admission note show that she was on aspirin, diltiazem 240 daily, furosemide 40 mg a day, multivite, and vitamin B12. I do not see any mention of metoprolol. ALLERGIES: No known drug allergies. SOCIAL HISTORY: Never smoker. No alcohol use. FAMILY HISTORY: No early coronary disease. REVIEW OF SYSTEMS: Overall health: No fevers, night sweats, or weight loss. GI: No ulcers or blood in his stool. : No dysuria, no hematuria. Pulmonary: No increased shortness of breath. Cardiac: As per HPI. Denies any orthopnea or PND. She has chronic lower extremity edema. Pulmonary: No history of increased shortness of breath. Neurologic: No history of dizziness, lightheadedness. She said she tripped with the fall. She does use a walker generally, but has not been using this regularly. Ophtho: No acute vision changes. ENT: No difficulty swallowing. No acute hearing changes. Psych: No acute issues. All review of systems on a 12-point review of systems are negative. PHYSICAL EXAMINATION: Blood pressure is 139/75, heart rate 104, sats are 97% on 3 L. General: In no acute distress. Speaking in full sentences, without apparent shortness of breath. Head and neck: Normocephalic, atraumatic. Vascular: No carotid bruits appreciated. Heart: Distant sounds. Irregular. Lungs: Sound clear anteriorly. Back: No CVA tenderness to palpation. Abdomen: Soft. Extremities: With what appears to be chronic edema. The left leg is rotated outwards. Psych: Appropriate mood and affect. Gait is not tested. Optho: vision grossly intact. ENT - MMM MEDICATIONS: As noted: Diltiazem 60 mg q.6, furosemide 40 mg b.i.d., levothyroxine 125 daily, diltiazem drip. LABORATORIES: Show white count 14.5, H and H 9.3 and 29.9, platelets of 268,000. Chemistry shows sodium 143, potassium 4.3, chloride and bicarb 105 and 26, with BUN and creatinine 20 and 1.06. Troponin not elevated. ProBNP elevated. Alk phos somewhat elevated. IMAGING: Hip CT showing the fractures as described. IMPRESSION: The patient is scheduled to go to surgery today for her left hip. We are waiting for son to confirm that she plans to go forward with this surgery. It does appear that she was on beta hadley as an outpatient but it does not show up on her current medications. I think we should discuss with surgery if they would be willing to do this procedure with the use of IV diltiazem which they can up-titrate and down-titrate as needed depending on her heart rates as well as her blood pressures. Otherwise, would plan on increasing her oral diltiazem dose (with the goals to get off the drip) 40 minutes was spent reviewing the patient's old records, speaking with her and discussing her case with the hospitalist team KYLEIGH
--- NOTE | 2017-03-03 14:23 | PCM.PNMED ---
Subjective Date of Service Mar 03, 2017 Subjective Today the patient states that she feels fairly well, the pain in her hip is only aggravating when she is moved but does not bother her at rest. She expressed some concern over the scheduling of her prospective surgery, and further expressed that her son may prefer to have her transferred to a hospital in [place] for definitive surgical management. Her son was not available to corroborate this statement or express his concerns. Overnight that patient was experiencing rapid Afib with RVR such that the orthopedist Dr. Mercedes did not feel comfortable proceeding to surgery. Exam Vital Signs Vital Sign - Last Date Time Temp Pulse Resp B/P Pulse Ox O2 Delivery O2 Flow Rate FiO2 03/03/17 11:28 37.2 109 18 126/72 96 Nasal Cannula 3.00 Intake and Output 03/02/17 03/02/17 03/03/17 Cumulative From/Thru 15:00 23:00 07:00 03/02/17 13:01 - 03/03/17 07:00 Intake Total 342 ml 342 ml Output Total 1200 ml 1200 ml Balance -858 ml -858 ml Intake Oral 200 ml 200 ml IV Total 142 ml 142 ml Output Urine Total 1200 ml 1200 ml Exam Gen: A/O x3 pleasant cooperative elderly woman in mild acute distress secondary to leg pain Neck: Supple, non tender, ROM appropriate for age, no JVD HEENT: PERRL, EOMI, no scleral icterus, no conjunctival pallor CV: Irregularly irregular tachycardia with rate approx 110, no murmurs rubs or gallops Resp: Lungs CTA BL, no wheezing rales or rhonchi Abd: No rebound guarding masses or tenderness Extr: Patient prefers to keep her leg rigidly straight and has pain with any movement Neuro: CN 2-12 grossly intact, no focal neurologic deficit. Psych: Pleasant and appropriate mood and affect . IVs and Medications Medications Reviewed: Medications were reviewed in detail Lab and Diagnostics Item Value Date Time Red Blood Count 3.33 mil/mm3 L 03/03/17 0340 Mean Corpuscular Volume 89.8 fL 03/03/17 0340 Mean Corpuscular Hemoglobin 27.9 pg 03/03/17 0340 Mean Corpuscular Hemoglobin Concent 31.1 % L 03/03/17 0340 Red Cell Distribution Width 17.9 % H 03/03/17 0340 Neutrophils (%) (Auto) 66.2 % 03/03/17 0340 Lymphocytes (%) (Auto) 8.1 % L 03/03/17 034 Monocytes (%) (Auto) 10.4 % 03/03/17 034 Eosinophils (%) (Auto) 14.0 % H 03/03/17 034 Basophils (%) (Auto) 0.8 % 03/03/17 034 Estimat Glomerular Filtration Rate 71 mL/min 03/03/17 034 Calcium Level 8.9 mg/dL 03/03/17 034 Result Diagram: 03/03/17 03403/03/17339 Microbiology Blood culture 2 pending. . X-Rays, CTs and MRIs X-RAY LEFT HIP COMPLETE, MINIMUM TWO VIEWS IMPRESSION: 1. Intertrochanteric fracture of the left hip. In the absence of trauma, cannot exclude a pathological fracture. 2. Left superior and inferior pubic humeral fracture. 3. Possible right pubic fracture at the pubic symphysis. Dictated by: Andre Cadena M.D. on 03/02/2017 at 14:11 X-RAY LEFT FEMUR, TWO VIEWS IMPRESSION: Displaced, comminuted, left intertrochanteric fracture. Dictated by: Debbie Anguiano M.D. on 03/02/2017 at 13:10 X-RAY CHEST ONE VIEW, PORTABLE IMPRESSION: 1. Cardiomegaly and interstitial prominence suspicious for fluid overload. 2. Questionable lobulated mass at the medial left apex. If further characterization is warranted, CT of the chest would be helpful to exclude neoplasm. Dictated by: Debbie Anguiano M.D. on 03/02/2017 at 13:11 CT HIP LEFT W/O CONTRAST Impression: Moderately displaced, comminuted fractures are seen involving left intertrochanteric femur as well as the left proximal femoral shaft. Fractures involving the left pubis and the right pubis are seen, which are more displaced on the left than on the right. Dictated by: Cecil Zafar M.D. on 03/02/2017 at 15:57 . 12-lead ECG EKG: Atrial fibrillation with RVR, heart rate 131, normal axis, nonspecific ST changes, no pathological Q waves or acute ischemic changes such as ST elevation or depression. . Assessment & Plan Jordana Drake is a 81-year-old female with a past medical history significant for atrial fibrillation with RVR, hypothyroidism, osteoarthritis, hypertension, and congestive heart failure who presented to [facility] emergency department via EMS for unwitnessed ground-level fall and left leg pain found to be related to left hip fracture. Her management has been complicated by her rapid Afib which has made Orthopedics reticent to take her to surgery. We are attempting to control her rate in order to facilitate her surgical fixation. Acute left intertrochanteric and bilateral pubic rami fracture, present on admission. Active. - The patient unwitnessed ground-level fall in which she tripped and fell over a cat onto a hardwood floors and begin experiencing left leg pain. - Left hip x-ray demonstrated intertrochanteric fracture of the left hip, left superior and anterior pubic humeral fracture, right pubic fracture of pubic symphysis, as above. - Left femur x-ray demonstrated displaced comminuted left intertrochanteric fracture, as above. - CT left hip without contrast demonstrated moderately displaced comminuted fractures involving left intertrochanteric femur and left proximal femoral shaft. Fractures involving the left pubis and right pubis are seen which are more displaced on the left than on the right, as above. - Continue pain management with hydromorphone 1 mg every hour as needed for severe pain. - Held aspirin 325 mg daily. - Orthopedics is reticent to bring her to the OR until her rate is better controlled Acute on chronic atrial fibrillation with RVR, present on admission. Active. - The patient is currently hemodynamically stable. - She is on diltiazem CD 240 mg daily and possibly metoprolol tartrate 100 mg twice a day for which she reports she took these today. - Ordered diltiazem gtt and started diltiazem 90 mg PO every 6 hours. We will plan to slowly wean off diltiazem drip to diltiazem PO in the next day. - Cardiology has evaluated the patient and recommended that above Diltiazem dosing in order to expedite rate control and subsequent surgery Chronic problems: Anemia, present on admission. Stable. - Likely represents anemia of chronic kidney disease, however, with new left intertrochanteric fracture there is likely some acute blood loss anemia present as well. - Patient is currently hemodynamically stable. - Continue to monitor hemoglobin and hematocrit daily. Hypothyroidism, present on admission. Stable. - Continue levothyroxine 125 g daily. Hypertension, present on admission. Stable. - Continue diltiazem as above Congestive heart failure, present on admission. Presumed stable. - Chest x-ray demonstrated cardiomegaly and possible fluid overload. - Continue furosemide 40 mg daily. Patient has conflicting medication history but med rec completed as per patient report. - Hold off on hydrating the patient with IV fluids for now. If IV fluid hydration is required would recommend gentle fluid hydration due to CHF. Chronic kidney disease, present on admission. Stable. - Initial creatinine 1.20. Baseline creatinine 1.5-2.0. - Avoid nephrotoxic agents. - Hold on hydrating the patient with IV fluids for now. Disposition: Patient is awaiting surgical fixation until better rate control can be achieved, following surgical intervention DC will be dictated by Orthopedics. She will likely require at least temporary SNF placement. Likely DC in 2-3 days. . Pain Evaluation: Adequate Pain Control VTE Prophylaxis: Other (Holding for potential surgery) VTE Mechanical Devices: Intermittant Pneumatic CD Resuscitation Status: CPR: Attempt Resuscitation Attending Statement The patient was seen and examined together with Dr. Raza on 03/03/17 and I agree with the history, exam and plan as outlined in the note above. Alexx Raza DO Mar 03, 2017 14:23 Ivan Davenport Mar 03, 2017 18:37
[2017-03-03] MEDS: Piperacillin-Tazo 3.375 Gm Inj 3.375 GM in Dextrose 5% Minibag Plus 50 ML IV SCH (16:43)
[2017-03-03] MEDS: Linezolid Inj 600 MG in IV Premix 1 EACH IV SCH (17:54)
--- NOTE | 2017-03-03 19:36 | NUR ---
pain/Diltiazem C/O L hip pain only with activity. At rest, pt states "why doesn't my hip hurt? Don't I have a fracture?" Dilaudid given after pt was turned by CNAs. Upon arriving, dilt was running at 10cc/hr and HR was up into the 150s. Dilt bumped up to 12cc/hr which brought HR to the 130s. Dilt increased to 15cc which kept HR in the low 100s. Dilt decreased to 10cc around 1500 and then down to 5cc around 1700. HR maintaining low 100s-110s. Pt understands she is NPO after midnight.
[2017-03-04] VITALS (19 sets, daily range): BP systolic 94–133; BP diastolic 49–79; PULSE 95–120; RESP 16–28; O2SAT 87–96
[2017-03-04] MEDS: Piperacillin-Tazo 3.375 Gm Inj 3.375 GM in Dextrose 5% Minibag Plus 50 ML IV SCH ×4 (00:17→16:30)
[2017-03-04 03:26] LABS: BASOPHILS % (AUTO) 0.6 % (0-3); EOSINOPHILS % (AUTO) 11.7 % (0-5); MONOCYTES % (AUTO) 14.2 % (4-12); Mean Corpuscular Hemoglobin 28.5 pg (27.0-35.0); Mean Corpuscular Volume 89.1 fL (81-100); NEUTROPHILS % (AUTO) 67.7 % (40-74); Platelet Count 261 bil/L (150-400)
[2017-03-04 03:40] LABS: INR 1.05 ratio
[2017-03-04 03:49] LABS: Magnesium 1.9 mg/dL (1.6-2.6); Phosphorus 3.3 mg/dL (2.5-4.9)
[2017-03-04] MEDS: Linezolid Inj 600 MG in IV Premix 1 EACH IV SCH ×2 (05:09→20:38)
--- NOTE | 2017-03-04 05:58 | NUR ---
HR/pain/confusion pts HR was AFIB rate 120-140s PO cardizem increased to 90mg q6 hours, also cardizem gtt infusing at 15mg/hr, after second dose at 0230 was able to titrate cardizem gtt down and at this time it is on stand by and HR 80-90s, pt denied pain all shift, pt also very confused this shift, not sleeping well, unable to reorientate. aware. will cont to closely monitor
[2017-03-04] MEDS ORDERED: Phenylephrine/NS 100 mCg/mL 10 mL Syringe IVPUSH ONE (08:25)
[2017-03-04] MEDS ORDERED: fentaNYL-PF 50 mCg/mL 2 mL Inj ONE (08:25)
--- NOTE | 2017-03-04 09:15 | NUR ---
[facility] SIGNED
--- NOTE | 2017-03-04 14:21 | NUR ---
OT pending ortho surgery. Will check on tomorrow. Surya Avila, OT/L
--- NOTE | 2017-03-04 14:56 | PCM.HPANE ---
Patient Data Surgeon Admitting Provider:Arias Lara MD Attending Provider:Ivan Davenport Primary Care Physician:Dallas Caballero MD Other Provider: Reason for Visit Left Hip Fracture, Pelvic Fracture, Afib With Rvr Ht/WT & BMI Height (Feet): 5 Height (Inches): 3.75 Weight (Kilograms): 78.100 Body Mass Index Allergies Coded Allergies: No Known Allergies (Unverified Allergy, Unknown, 03/02/17) Past Anesthesia History Anesthesia History: Denies:: Abnormal Airway, Anesthesia Reactions, Difficult Intubation, Fam Anesthesia Reaction, Fam Malignant Hypertherm, Malignant Hyperthermia Diabetes History Hx Diabetes?: No MRSA MRSA: No Medications Blood Thinner: Aspirin (325 MG) Reported Medications Multivitamin (Once Daily)1 Each Tablet1 Each PO DAILYWD 03/02/17 Cyanocobalamin (Vitamin B-12) (Vitamin B-12)1,000 Mcg Tablet1,000 Mcg PO QAM 03/02/17 Aspirin 325 Mg [id number] Mg PO QAM #1 BOTTLE 03/02/17 Diltiazem ER 240 Mg Capsule.er240 Mg PO QAM #60 03/02/17 Furosemide 40 Mg [id number] Mg PO BIDWM #30 03/02/17 Levothyroxine 125 Mcg [id number] Mcg PO QAM #30 03/02/17 Discontinued Reported Medications Metoprolol Tartrate 100 Mg [id number] Mg PO BID Ref 0 06/22/14 Furosemide (Lasix)40 Mg [id number] Mg PO DAILY Ref 0 06/22/14 Rivaroxaban (Xarelto)10 Mg [id number] Mg PO DAILY 06/22/14 Multivitamin (Daily Vitamin)1 Each Tablet1 Each PO DAILY 03/20/14 Discontinued Scripts Cyanocobalamin (Vitamin B-12)500 Mcg Tab1,000 Mcg PO DAILY #60 TAB Prov:DamariJoshua A DO 03/28/14 [Diltiazem Hcl] (Cardizem CD)180 MG CAP.ER.24H No Conflict [id number] Mg PO DAILY #30 Prov:Ly,Joshua A DO 03/28/14 History History of ENT Problems?: Yes HEENT History: Positive for:: Cataracts (bilat [id number]) Denture Type: None Teeth Condition: Within Normal Limits Hx of Heart Problems?: Yes Cardiovascular History: Positive for:: Congestive Heart Failure Edema Heart Murmur Hypertension (ATENOLOL, LISINOPRIL) Irregular Heartbeat (afib with rvr) Denies:: Chest Pain Pacemaker Thrombophlebitis Hx of Respiratory Problem?: Yes Respiratory History: Positive for:: Dyspnea Denies:: Tuberculosis Hx Neurologic Problems?: No Hx of GI Problems?: No Hx of Problems?: Yes Genitourinary History: Positive for:: Urinary Tract Infection Denies:: Kidney Stones Female Hx: Denies:: Currently Hx Musculoskeletal Problems?: Yes Musculoskeletal History: Positive for:: Back Injury Denies:: Joint Replacement Hx of Psycho/Social Problems?: No Hx Surgeries?: Yes (appy) Hx Any Other Health Problems?: Yes Other History: Positive for:: Hospitalization Thyroid Disease Denies:: Cancer History Blood Transfusions: Positive for:: Accept Blood Products? Denies:: Blood Transfusions Hx Diabetes: No Hx Alcohol Use: NoHx Substance Use: No Smoking Status: Never Smoker Stop/Bang Treated for Sleep Apnea?: No Do You Have a CPAP Machine?: No S-Snoring: Do You Snore Loudly: Yes T-Tired: feel tired, fatigued: No O-Obsered: Observed not breath: No P-Blood Pressure: treated: Yes B- Body Mass Index > 35 kg/m2: No A- Age over 50: Yes N- Neck Large Circumference: No G- Gender Male: No JAMA Total Score: 2 JAMA Risk Assessment: Low Risk, <3 Yes Risk Assessment Category Category 1A: Patient has history of documented sleep apnea, and HAS NOT received any narcotic, sedative or anesthesia administration during this stay. Category 1B: Patient has history of documented sleep apnea, and HAS received any narcotic , sedative or anesthesia administration during this stay Category 2: Patient has SUSPECTED Obstructive Sleep Apnea, and HAS received any narcotic , sedative or anesthesia administration during this stay. Category 3: Patient has SUSPECTED Obstructive Sleep Apnea and HAS NOT received narcotic, sedative or anesthesia administration during this stay. Category 4: Outpatient in Procedural Areas with known sleep apnea or who screen positive for High Risk via the STOP/BANG questionnaire. Exam Exam Vital Signs Vital Signs Date Time Temp Pulse Resp B/P Pulse Ox O2 Delivery O2 Flow Rate FiO2 03/04/17 11:37 38.0 101 28 121/67 96 Nasal Cannula 2.00 03/04/17 10:42 108 03/04/17 09:30 Supplement Oxygen 03/04/17 08:30 37.4 116 20 133/79 96 Nasal Cannula 2.00 General Appearance: Alert, No Acute Distress HEENT/AIRWAY: MP 2 Lungs: Diminished Heart: Other (IRREGULAR,a.fIB WITH RATE CONTROLLED WITH dILTIAZEM AND METOPROLOL) Meds/Labs/Diagnostics Admission Meds Current Medications Diltiazem HCl (Cardizem) 30 mg ONCE ONCE PO Last administered on 03/03/17 15: 29; Start 03/03/17 at 14:55; Stop 03/03/17 at 14:56; Status DC Diltiazem HCl 90 mg 90 mg Q6 PO Last administered on 03/04/17 14:40; Start at 20:30 Piperacillin Sod/ Tazobactam Sod 3.375 gm/Dextrose/ Water 50 ml @ 12.5 mls/hr Q8 IV Last administered on 03/04/17 07:41; Start 03/03/17 at 16:30 Linezolid/Premix (Zyvox Inj/IV Premix) 300 ml @ 300 mls/hr Q12H IV Last administered on 03/04/17 05:09; Start 03/03/17 at 17:00 Labs Test 03/02/17 13:10 03/02/17 15:15 03/02/17 15:18 03/04/17 03:16 Activated Partial Thromboplast Time 27.6sec (22.8-33.0) Hemoglobin A1c 6.4% (4.8-5.6) Troponin T < 0.010ug/L (0.0-0.011) Pro-B-Type Natriuretic Peptide 4443pg/mL (0-738) Thyroid Stimulating Hormone (TSH) 3.300uIU/mL (0.450-4.500) Hold Capps Top Tube Received (Received) Urine Color Yellow (YELLOW) Urine Appearance Hazy (CLEAR,HAZY) Urine pH 5.5 (5.0-8.0) Urine Specific [place] 1.020 (1.003-1.035) Urine Protein 30mg/dL (NEG,TRACE) Urine Glucose (UA) Negativemg/dL (NEGATIVE) Urine Ketones Negativemg/dL (NEGATIVE) Urine Occult Blood Negative (NEGATIVE) Urine Nitrite Negative (NEGATIVE) Urine Bilirubin Negative (NEGATIVE) Urine Urobilinogen Normalmg/dL (NORMAL) Urine Leukocyte Esterase Negative (NEGATIVE) Urine RBC 0-2/hpf (0-2) Urine WBC 0-5/hpf (0-5) Urine Epithelial Cells None/hpf (NONE-MOD) Urine Crystals None seen (NONE SEEN) Urine Bacteria Few/hpf (NONE-FEW) Urine Hyaline Casts None/lpf (NONE) Urine Granular Casts None seen (NONE SEEN) Urine Waxy Casts None seen (NONE SEEN) Urine Red Blood Cell Casts None seen (NONE SEEN) Urine White Blood Cell Casts None seen (NONE SEEN) Urine Mucus None seen (None Seen) Urine Trichomonas None seen (NONE SEEN) Urine Yeast None (NONE SEEN) Urinalysis Comment None Urine Culture Reflexed Not indicated White Blood Count 16.3th/mm3 (3.8-10.1) Red Blood Count 3.40mil/mm3 (3.90-5.20) Hemoglobin 9.7g/dL (12.0-15.6) Hematocrit 30.3% (35.0-46.0) Mean Corpuscular Volume 89.1fL (81-100) Mean Corpuscular Hemoglobin 28.5pg (27.0-35.0) Mean Corpuscular Hemoglobin Concent 32.0% (32.0-37.0) Red Cell Distribution Width 18.0% (12.3-15.4) Platelet Count 261bil/L (150-400) Neutrophils (%) (Auto) 67.7% (40-74) Lymphocytes (%) (Auto) 5.5% (14-46) Monocytes (%) (Auto) 14.2% (4-12) Eosinophils (%) (Auto) 11.7% (0-5) Basophils (%) (Auto) 0.6% (0-3) Prothrombin Time 11.3sec (8.1-12.5) Prothromb Time International Ratio 1.05ratio Sodium Level 141mEq/L (134-144) Potassium Level 4.1mEq/L (3.5-5.2) Chloride Level 101mEq/L (97-108) Carbon Dioxide Level 23mmol/L (18-29) Blood Urea Nitrogen 24mg/dL (8-27) Creatinine 1.26mg/dL (0.57-1.00) Estimat Glomerular Filtration Rate 59mL/min (>59) Glucose Level 140mg/dL (60-99) Calcium Level 8.8mg/dL (8.5-10.1) Phosphorus Level 3.3mg/dL (2.5-4.9) Magnesium Level 1.9mg/dL (1.6-2.6) Total Bilirubin 1.1mg/dL (0.0-1.2) Aspartate Amino Transf (AST/SGOT) 20U/L (0-50) Alanine Aminotransferase (ALT/SGPT) 11U/L (0-32) Alkaline Phosphatase 158U/L (25-165) Total Protein 7.8g/dL (6.4-8.4) Albumin 3.7g/dL (3.4-5.0) Plan Impression Patient chart reviewed, patient interviewed and anesthestic plan with risks, benefits, and alternatives discussed, and informed consent obtained. NPO per Anesth. Guidelines: Yes ASA Physical Status: ASA3 Severe Disease Anesthetic Plan: GA Bene/Risks/Altern/Consents: Yes HP Complete Prior to Induction: Yes Other Pt's EKG,consult from cardiology/Labs reviewed Gina Forbes MD Mar 04, 2017 14:56
--- NOTE | 2017-03-04 15:21 | NUR ---
Mentation/HR/OR NPO since midnight. Confused this AM, Only oriented to self. Concerned thinking she fell in the night. Asking questions like "where did all the kids go?". Around 1000 her mentation cleared up. A&O X3. Asking appropriate questions regarding her surgery. Son and sister at the bedside. HR initially in the 110s but after her PO Dilt, came down to 90s. This afternoon she maintained 80s-low 100s on PO dilt only. BP 121/67. Tolerating 2L 02 satting 94%. Transport came to talk pt to OR. Saline locked. Portable O2 tank ready. MP3o disconnected. Pt A&O and ready for surgery. Left at 1520. Son and sister grabbed pt's purse.
[2017-03-04] MEDS ORDERED: Lactated Ringer's 1,000 ML IV ONE (15:38)
--- NOTE | 2017-03-04 15:58 | PCM.PNMED ---
Subjective Date of Service Mar 04, 2017 Subjective Upon evaluation today the patient states that she is mostly doing well, but is just impatient to proceed to surgery. She does endorse some upper neck and back pain, but surprisingly states that her hip does not bother her unless she is moved or manipulated. She otherwise denies chest pain, SOB, nausea, Vomiting, or diarrhea. The patient had an uneventful evening. Exam Vital Signs Vital Sign - Last Date Time Temp Pulse Resp B/P Pulse Ox O2 Delivery O2 Flow Rate FiO2 03/04/17 15:00 37.4 03/04/17 11:37 101 28 121/67 96 Nasal Cannula 2.00 Intake and Output 03/03/17 03/03/17 03/04/17 Cumulative From/Thru 15:00 23:00 07:00 03/02/17 13:01 - 03/04/17 06:15 Intake Total 945 ml 506 ml 1793 ml Output Total 800 ml 700 ml 2700 ml Balance 145 ml -194 ml -907 ml Intake Oral 480 ml 680 ml IV Total 465 ml 506 ml 1113 ml Output Urine Total 800 ml 700 ml 2700 ml Exam Gen: A/O x3 pleasant cooperative elderly woman in mild acute distress secondary to leg pain Neck: Supple, non tender, ROM appropriate for age, no JVD HEENT: PERRL, EOMI, no scleral icterus, no conjunctival pallor CV: Irregularly irregular tachycardia with rate approx 100, no murmurs rubs or gallops Resp: Lungs CTA BL, no wheezing rales or rhonchi Abd: No rebound guarding masses or tenderness Extr: Patient prefers to keep her leg rigidly straight and has pain with any movement, moderate BL pitting LE edema, skin contracted indicative of recently worse edema Neuro: CN 2-12 grossly intact, no focal neurologic deficit. Psych: Pleasant and appropriate mood and affect IVs and Medications Medications Reviewed: Medications were reviewed in detail Lab and Diagnostics Item Value Date Time Red Blood Count 3.40 mil/mm3 L 03/04/17315 Mean Corpuscular Volume 89.1 fL 03/04/17315 Mean Corpuscular Hemoglobin 28.5 pg 03/04/17315 Mean Corpuscular Hemoglobin Concent 32.0 % 03/04/17315 Red Cell Distribution Width 18.0 % H 03/04/17 031 Neutrophils (%) (Auto) 67.7 % 03/04/17 0316 Lymphocytes (%) (Auto) 5.5 % L 03/04/17 0316 Monocytes (%) (Auto) 14.2 % H 03/04/17 0316 Eosinophils (%) (Auto) 11.7 % H 03/04/17 0316 Basophils (%) (Auto) 0.6 % 03/04/17 031 Estimat Glomerular Filtration Rate 59 mL/min 03/04/17 0316 Calcium Level 8.8 mg/dL 03/04/17 0316 Phosphorus Level 3.3 mg/dL 03/04/17 0316 Magnesium Level 1.9 mg/dL 03/04/17 031 Total Bilirubin 1.1 mg/dL 03/04/176 Aspartate Amino Transf (AST/SGOT) 20 U/L 03/04/17 0316 Alanine Aminotransferase (ALT/SGPT) 11 U/L 03/04/17 031 Alkaline Phosphatase 158 U/L 03/04/176 Total Protein 7.8 g/dL 03/04/17 0316 Albumin 3.7 g/dL 03/04/17 0316 Result Diagram: 03/04/17 03103/04/17 031 Microbiology Blood culture 2 pending. . X-Rays, CTs and MRIs X-RAY LEFT HIP COMPLETE, MINIMUM TWO VIEWS IMPRESSION: 1. Intertrochanteric fracture of the left hip. In the absence of trauma, cannot exclude a pathological fracture. 2. Left superior and inferior pubic humeral fracture. 3. Possible right pubic fracture at the pubic symphysis. Dictated by: Andre Cadena M.D. on 03/02/2017 at 14:11 X-RAY LEFT FEMUR, TWO VIEWS IMPRESSION: Displaced, comminuted, left intertrochanteric fracture. Dictated by: Debbie Anguiano M.D. on 03/02/2017 at 13:10 X-RAY CHEST ONE VIEW, PORTABLE IMPRESSION: 1. Cardiomegaly and interstitial prominence suspicious for fluid overload. 2. Questionable lobulated mass at the medial left apex. If further characterization is warranted, CT of the chest would be helpful to exclude neoplasm. Dictated by: Debbie Anguiano M.D. on 03/02/2017 at 13:11 CT HIP LEFT W/O CONTRAST Impression: Moderately displaced, comminuted fractures are seen involving left intertrochanteric femur as well as the left proximal femoral shaft. Fractures involving the left pubis and the right pubis are seen, which are more displaced on the left than on the right. Dictated by: Cecil Zafar M.D. on 03/02/2017 at 15:57 . 12-lead ECG EKG: Atrial fibrillation with RVR, heart rate 131, normal axis, nonspecific ST changes, no pathological Q waves or acute ischemic changes such as ST elevation or depression. . Assessment & Plan Jordana Drake is a 81-year-old female with a past medical history significant for atrial fibrillation with RVR, hypothyroidism, osteoarthritis, hypertension, and congestive heart failure who presented to [facility] emergency department via EMS for unwitnessed ground-level fall and left leg pain found to be related to left hip fracture. Her management has been complicated by her rapid Afib which has made Orthopedics reticent to take her to surgery. The patient was taken to the OR today for surgical fixation. Acute left intertrochanteric and bilateral pubic rami fracture, present on admission. Active. - The patient unwitnessed ground-level fall in which she tripped and fell over a cat onto a hardwood floors and begin experiencing left leg pain. - Left hip x-ray demonstrated intertrochanteric fracture of the left hip, left superior and anterior pubic humeral fracture, right pubic fracture of pubic symphysis, as above. - Left femur x-ray demonstrated displaced comminuted left intertrochanteric fracture, as above. - CT left hip without contrast demonstrated moderately displaced comminuted fractures involving left intertrochanteric femur and left proximal femoral shaft. Fractures involving the left pubis and right pubis are seen which are more displaced on the left than on the right, as above. - Continue pain management with hydromorphone 1 mg every hour as needed for severe pain. - Held aspirin 325 mg daily. - Patient taken to the OR today for surgical fixation. Acute on chronic atrial fibrillation with RVR, present on admission. Active. - The patient is currently hemodynamically stable. - She is on diltiazem CD 240 mg daily and possibly metoprolol tartrate 100 mg twice a day for which she reports she took these today. - Dilt converted to PO in order to facilitate surgical intervention Chronic problems: Anemia, present on admission. Stable. - Likely represents anemia of chronic kidney disease, however, with new left intertrochanteric fracture there is likely some acute blood loss anemia present as well. - Patient is currently hemodynamically stable. - Continue to monitor hemoglobin and hematocrit daily. Hypothyroidism, present on admission. Stable. - Continue levothyroxine 125 g daily. Hypertension, present on admission. Stable. - Continue diltiazem as above Congestive heart failure, present on admission. Presumed stable. - Chest x-ray demonstrated cardiomegaly and possible fluid overload. - Continue furosemide 40 mg daily. - Hold off on hydrating the patient with IV fluids for now. If IV fluid hydration is required would recommend gentle fluid hydration due to CHF. Chronic kidney disease, present on admission. Stable. - Initial creatinine 1.20. Baseline creatinine 1.5-2.0. - Avoid nephrotoxic agents. - Hold on hydrating the patient with IV fluids for now. Disposition: Patient taken to the OR for surgical fixation, will ascertain progress post operatively to determine likely DC date. . Pain Evaluation: Adequate Pain Control VTE Prophylaxis: Other VTE Mechanical Devices: Intermittant Pneumatic CD Resuscitation Status: CPR: Attempt Resuscitation Attending Statement The patient was seen and examined together with Dr. Raza on 03/04/17 and I agree with the history, exam and plan as outlined in the note above. Alexx Raza DO Mar 04, 2017 15:58 Ivan Davenport Mar 05, 2017 14:45
[2017-03-04] MEDS ORDERED: Lactated Ringer's 1,000 ML IV SCH (16:33)
[2017-03-04] MEDS ORDERED: Lactated Ringer's 500 ML IV PRN (16:33)
[2017-03-04] MEDS ORDERED: fentaNYL-PF 50 mCg/mL 2 mL Inj IVPUSH PRN (16:35)
[2017-03-04] MEDS ORDERED: Ropivacaine-PF 0.5% 30 mL Inj INFILTRATE ONE (16:35)
[2017-03-04] MEDS ORDERED: EPHEDrine Sulfate 50 mg/mL Inj IVPUSH PRN (16:35)
[2017-03-04] MEDS ORDERED: Dexamethasone 4 mg/mL Inj IVPUSH PRN (16:35)
[2017-03-04] MEDS ORDERED: Ondansetron 2 mg/mL 2 mL Inj IVPUSH PRN (16:35)
[2017-03-04] MEDS ORDERED: HYDROmorphone 1 mg/mL Inj IVPUSH PRN (16:35)
[2017-03-04] MEDS ORDERED: Phenylephrine 10,000 mCg/mL Inj IVPUSH PRN (16:35)
[2017-03-04] MEDS ORDERED: MetoCLOpramide 5 mg/mL 2 mL Inj IVPUSH PRN (16:35)
[2017-03-04] MEDS ORDERED: diphenhydrAMINE 25 mg Capsule PO PRN (17:45)
[2017-03-04] MEDS ORDERED: Polyethylene Glycol (PEG) 17 Gm Powder PO PRN (17:45)
[2017-03-04] MEDS ORDERED: Magnesium Hydroxide 10 mL Oral Concentration PO PRN (17:45)
[2017-03-04] MEDS ORDERED: Sodium Biphos-Phos 133 mL Enema RECTAL PRN (17:45)
[2017-03-04] MEDS ORDERED: Acetaminophen IV 1,000 MG in IV Premix 1 EACH IV ONE (17:45)
[2017-03-04] MEDS: 0.9% Sodium Chloride 500 ML IV SCH ×2 (19:22→23:59)
--- NOTE | 2017-03-04 19:48 | OP ---
[address] [address] OPERATIVE REPORT PATIENT: SHIELA, SHEFALI Sullivan : 1935 MR#: [id number] ADMIT: 03/02/2017 JOB ID: [id number] DATE OF SURGERY: 03/04/2017 PREOPERATIVE DIAGNOSIS(ES): Left hip intertrochanteric fracture. POSTOPERATIVE DIAGNOSIS(ES): Left hip subtrochanteric fracture. PROCEDURE: Left hip long intramedullary nailing. SURGEON: Sharan Mercedes DO ANESTHESIA: General. INDICATIONS: The patient is an 81-year-old female who fell, sustaining a left hip fracture. She was unable to ambulate after the fall. She was admitted to the hospital but was in AFIB with RVR and suffering from CHF. She was medically optimized and was able to get off of the diltiazem drip today and we felt that it would be safe to proceed with surgery. I discussed the risks, benefits, and possible complications of surgery with the patient, her son, and her sister, including but not limited to injury to nerves and vessels, infection, bleeding, incomplete relief of symptoms stiffness, and need for additional procedures. The patient had good understanding. All questions were answered. She wished to proceed. PROCEDURE IN DETAIL: The patient was brought to the operating room. She was given a preoperative antibiotic and placed comfortably onto the fracture table. The left hip was reduced with a combination of traction and internal rotation, as well as adduction. She was noted to have a subtrochanteric extension of her fracture at the time of reduction. The hip was then sterilely prepped and draped and a surgical time-out was performed. An incision was made about three fingerbreadths above the level of the trochanter and dissection was carefully carried through the subcutaneous tissue and down onto the trochanter. A guidewire was placed into the tip of the greater trochanter in line with the femur and this was advanced into the intramedullary femur. Confirmation of pin placement was made with biplane fluoroscopy. This was over-reamed with the opening reamer. Then, the long ball-tipped guidewire was placed across the fracture site into the intramedullary femur and the femur was then reamed up to 11.5 for a 10 mm nail. I elected to use a 10 x 380 nail after taking measurement and the 10 x 380 125 degree nail was carefully impacted into the femur. The lateral cortex proximally was noted to have fractured and displaced, and the lag screw was then placed. An incision was made and the guide for the [employer] TFNA lag screw was placed and screwed down to reduce the lateral cortex. The guidewire was placed into the center-center position in the femoral head and this was then over-reamed and a 105 mm lag screw was inserted. It had excellent fixation and the set screw was then placed and backed off by 1/2 turn. A distal lock screw was then placed using a perfect [place] technique and had excellent fixation. The wounds were then irrigated and closed with 0 Vicryl to repair the iliotibial band. The subcu was closed 2-0. The skin was closed with kimberley. Naropin was added as an adjunct local anesthetic. Sterile dressings were applied. The patient tolerated the procedure well. BLOOD LOSS: 100 mL POSTOPERATIVE PROTOCOL: Will have the patient remain toe-touch weightbearing on the left lower extremity for a period of six weeks. Will plan to use Lovenox for DVT prophylaxis as the patient is at increased risk for deep venous thrombosis.
[2017-03-04] MEDS: Senna-Docusate 8.6-50 mg Tablet PO SCH (20:30)
[2017-03-04] MEDS ORDERED: Furosemide 10 mg/mL 2 mL Inj IVPUSH ONE (21:40)
[2017-03-04] MEDS ORDERED: Diltiazem 5 mg/mL 5 mL Inj IVPUSH ONE (22:00)
[2017-03-04] MEDS ORDERED: Diltiazem Inj 125 MG in Dextrose 5% 100 ML IV SCH (22:00)
--- NOTE | 2017-03-04 22:37 | NUR ---
refusal of meds pt post-op at change of shift from nailing of her left hip, tele AFIB rate 80-100s po cardizem and lasix due pt refusing to take medications, had 2 other nurses try and called her sister, pt still refused also refusing her oxygen SpO2 84-89%, let pt settle down came back later and tried again pt still refusing, HR now 110-130s called , she came into see pt and try to get her to take her mediations and put her oxygen on pt refused, slightly confused other pratt being cantankerous. called sister and son both spoke with pt and she still refusing to take medications and place oxygen on, MD spoke with son about this concern, pts son not wanting to come in and understands the situation and how low her SpO2 level is. changed medications to IV, gave 10mg IV lasix and 20mg IV cardizem and started cardizem gtt at 5mg/hr. BP stable. SpO2 still low at 86-89%. also stopped IVF will cont to closely monitor
[2017-03-05] MEDS: Piperacillin-Tazo 3.375 Gm Inj 3.375 GM in Dextrose 5% Minibag Plus 50 ML IV SCH (00:30)
[2017-03-05] MEDS: Sodium Chloride LOK Flush 10 mL Syringe IV SCH ×3 (00:30→17:45)
[2017-03-05 02:50] LABS: BASOPHILS % (AUTO) 0.8 % (0-3); EOSINOPHILS % (AUTO) 16.8 % (0-5); MONOCYTES % (AUTO) 11.9 % (4-12); Mean Corpuscular Volume 88.6 fL (81-100); NEUTROPHILS % (AUTO) 62.7 % (40-74); Platelet Count 248 bil/L (150-400)
[2017-03-05 03:49] LABS: Magnesium 1.7 mg/dL (1.6-2.6); Phosphorus 3.5 mg/dL (2.5-4.9)
[2017-03-05 04:46] VITALS: BP 112/55; PULSE 93; RESP 22; O2SAT 92
[2017-03-05 05:49] VITALS: PULSE 93
[2017-03-05] MEDS: Linezolid Inj 600 MG in IV Premix 1 EACH IV SCH (06:12)
--- NOTE | 2017-03-05 06:56 | NUR ---
confusion pt doesn't appear to be as confused as start of shift, apologized for "being a stinker" but still wont take PO medications. pt keeps removing her oxygen, placed an oxy mask in front of her face and that seems to keep her SpO2 greater then 92% when she leaves it there. pt removed part of her dsg reinforced it and placed ice packs there. pt denies any pain dose c/o her throat is sore. tolerating po on her own, cardizem gtt at 10mg /hr
--- NOTE | 2017-03-05 06:58 | PCM.ANEP1 ---
Post Anesthesia PACU Phase 1 Assessment Vital Signs Vital Signs Date Time Temp Pulse Resp B/P Pulse Ox O2 Delivery O2 Flow Rate FiO2 03/05/17 05:49 93 03/05/17 04:46 37.5 93 22 112/55 92 03/04/17 23:45 36.9 97 19 98/75 87 Room Air Anesthetic Administered: GA Level of Alertness: Awake, talking BELCHER's with Equal Strength: Yes Pain: Yes Pain Scale Score: 5 Nausea or Vomiting: No CV Function & Hydration Stable: Yes Airway Device: Oxygen Delivery: Simple Mask Lungs: Clear to Auscultation, Diminished PACU Phase 2 Assessment Complications: No Follow up Care: No Patient Instructions Provided: Yes Gina Forbes MD Mar 05, 2017 06:58
[2017-03-05 07:52] VITALS: PULSE 94
[2017-03-05 09:30] VITALS: BP 118/64; PULSE 102; RESP 20; O2SAT 92
[2017-03-05] MEDS: Senna-Docusate 8.6-50 mg Tablet PO SCH ×2 (10:10→20:47)
[2017-03-05] MEDS: HYDROcodone-APAP 5-325 mg Tablet PO PRN (10:10)
--- NOTE | 2017-03-05 11:39 | NUR ---
Evaluation completed. Please go to "Notes" then click on "Assessments and Notes" (bottom left corner of screen). Then select appropriate discipline tab on top of screen.
--- NOTE | 2017-03-05 11:40 | PCM.PNMED ---
Subjective Date of Service Mar 05, 2017 Subjective The patient expressed satisfaction at her relative lack of pain post operatively , she is eager to begin working with physical therapy and begin the rehabilitation process. She denies chest pain, SOB, abdominal pain, diarrhea, or constipation. She has yet to have a BM post operatively but states that she is passing gas. Overnight following surgery the patient was refusing labs, PO meds, and generally non cooperative with care. The importance of her PO medication regimen was reinforced at bedside rounds this AM and the patient expressed understanding of and agreement with the course of care. Exam Vital Signs Vital Sign - Last Date Time Temp Pulse Resp B/P Pulse Ox O2 Delivery O2 Flow Rate FiO2 03/05/17 09:30 37.2 102 20 118/64 92 Room Air 03/04/17 18:40 6.00 Intake and Output 03/04/17 03/04/17 03/05/17 Cumulative From/Thru 15:00 23:00 07:00 03/02/17 13:01 - 03/05/17 06:44 Intake Total 575 ml 1124 ml 3492 ml Output Total 100 ml 550 ml 3350 ml Balance 475 ml 574 ml 142 ml Intake Oral 400 ml 1080 ml IV Total 575 ml 724 ml 2412 ml Output Urine Total 550 ml 3250 ml Estimated Blood Loss 100 ml 100 ml Exam Gen: A/O x3 pleasant cooperative elderly woman in NAD Neck: Supple, non tender, ROM appropriate for age, no JVD HEENT: PERRL, EOMI, no scleral icterus, no conjunctival pallor CV: Irregularly irregular tachycardia with rate approx 90, no murmurs rubs or gallops Resp: Lungs CTA BL, no wheezing rales or rhonchi Abd: No rebound guarding masses or tenderness Extr: Dressed surgical wound on left hip which was not undressed, moderate BL LE pitting edema Neuro: CN 2-12 grossly intact, no focal neurologic deficit. Psych: Pleasant and appropriate mood and affect IVs and Medications Medications Reviewed: Medications were reviewed in detail Lab and Diagnostics Item Value Date Time Red Blood Count 2.89 mil/mm3 L 03/05/17 0230 Mean Corpuscular Volume 88.6 fL 03/05/17 0230 Mean Corpuscular Hemoglobin 28.0 pg 03/05/17 0230 Mean Corpuscular Hemoglobin Concent 31.6 % L 03/05/17 0230 Red Cell Distribution Width 17.5 % H 03/05/17 0230 Neutrophils (%) (Auto) 62.7 % 03/05/17 0230 Lymphocytes (%) (Auto) 7.4 % L 03/05/17 0230 Monocytes (%) (Auto) 11.9 % 03/05/17 0230 Eosinophils (%) (Auto) 16.8 % H 03/05/17 023 Basophils (%) (Auto) 0.8 % 03/05/17 023 Estimat Glomerular Filtration Rate 63 mL/min 03/05/17 023 Calcium Level 7.8 mg/dL L 03/05/17 0230 Phosphorus Level 3.5 mg/dL 03/05/17 0230 Magnesium Level 1.7 mg/dL 03/05/17 023 Total Bilirubin 0.9 mg/dL 03/05/17 023 Aspartate Amino Transf (AST/SGOT) 26 U/L 03/05/17 0230 Alanine Aminotransferase (ALT/SGPT) 10 U/L 03/05/17 0230 Alkaline Phosphatase 123 U/L 03/05/17 0230 Total Protein 6.3 g/dL L 03/05/17 0230 Albumin 2.8 g/dL L 03/05/17 0230 Result Diagram: 03/05/17 02303/05/17 023 Microbiology Blood culture 2 pending. . X-Rays, CTs and MRIs X-RAY LEFT HIP COMPLETE, MINIMUM TWO VIEWS IMPRESSION: 1. Intertrochanteric fracture of the left hip. In the absence of trauma, cannot exclude a pathological fracture. 2. Left superior and inferior pubic humeral fracture. 3. Possible right pubic fracture at the pubic symphysis. Dictated by: Andre Cadena M.D. on 03/02/2017 at 14:11 X-RAY LEFT FEMUR, TWO VIEWS IMPRESSION: Displaced, comminuted, left intertrochanteric fracture. Dictated by: Debbie Anguiano M.D. on 03/02/2017 at 13:10 X-RAY CHEST ONE VIEW, PORTABLE IMPRESSION: 1. Cardiomegaly and interstitial prominence suspicious for fluid overload. 2. Questionable lobulated mass at the medial left apex. If further characterization is warranted, CT of the chest would be helpful to exclude neoplasm. Dictated by: Debbie Anguiano M.D. on 03/02/2017 at 13:11 CT HIP LEFT W/O CONTRAST Impression: Moderately displaced, comminuted fractures are seen involving left intertrochanteric femur as well as the left proximal femoral shaft. Fractures involving the left pubis and the right pubis are seen, which are more displaced on the left than on the right. Dictated by: Cecil Zafar M.D. on 03/02/2017 at 15:57 . 12-lead ECG EKG: Atrial fibrillation with RVR, heart rate 131, normal axis, nonspecific ST changes, no pathological Q waves or acute ischemic changes such as ST elevation or depression. . Assessment & Plan Jordana Drake is a 81-year-old female with a past medical history significant for atrial fibrillation with RVR, hypothyroidism, osteoarthritis, hypertension, and congestive heart failure who presented to [facility] emergency department via EMS for unwitnessed ground-level fall and left leg pain found to be related to left hip fracture. Her management has been complicated by her rapid Afib which has made Orthopedics reticent to take her to surgery. The patient was taken to the OR today for surgical fixation on 03/04/17 with apparently good surgical results. Acute left intertrochanteric and bilateral pubic rami fracture, present on admission. Active. - The patient unwitnessed ground-level fall in which she tripped and fell over a cat onto a hardwood floors and begin experiencing left leg pain. - Left hip x-ray demonstrated intertrochanteric fracture of the left hip, left superior and anterior pubic humeral fracture, right pubic fracture of pubic symphysis, as above. - Left femur x-ray demonstrated displaced comminuted left intertrochanteric fracture, as above. - CT left hip without contrast demonstrated moderately displaced comminuted fractures involving left intertrochanteric femur and left proximal femoral shaft. Fractures involving the left pubis and right pubis are seen which are more displaced on the left than on the right, as above. - Continue pain management with hydromorphone 1 mg every hour as needed for severe pain. - Held aspirin 325 mg daily. - Patient taken to the OR 03/05 for surgical fixation. - Orthopedics will continue to see the patient for post operative management - Patient transferred to [facility] for post operative management Acute on chronic atrial fibrillation with RVR, present on admission. Active. - The patient is currently hemodynamically stable. - She is on diltiazem CD 240 mg daily and possibly metoprolol tartrate 100 mg twice a day for which she reports she took these today. - Dilt converted to PO in order to facilitate surgical intervention and transfer to [facility] Chronic problems: Anemia, present on admission. Stable. - Likely represents anemia of chronic kidney disease, however, with new left intertrochanteric fracture there is likely some acute blood loss anemia present as well. - Patient is currently hemodynamically stable. - Continue to monitor hemoglobin and hematocrit daily. Hypothyroidism, present on admission. Stable. - Continue levothyroxine 125 g daily. Hypertension, present on admission. Stable. - Continue diltiazem as above Congestive heart failure, present on admission. Presumed stable. - Chest x-ray demonstrated cardiomegaly and possible fluid overload. - Continue furosemide 40 mg daily. - Hold off on hydrating the patient with IV fluids for now. If IV fluid hydration is required would recommend gentle fluid hydration due to CHF. Chronic kidney disease, present on admission. Stable. - Initial creatinine 1.20. Baseline creatinine 1.5-2.0. - Avoid nephrotoxic agents. - Hold on hydrating the patient with IV fluids for now. Disposition: Patient recovering well from her procedure, discharge date will be dictated by surgery, likely 1-3 more days with disposition to be determined by post operative needs. Pain Evaluation: Adequate Pain Control VTE Prophylaxis: Other VTE Mechanical Devices: Intermittant Pneumatic CD Resuscitation Status: CPR: Attempt Resuscitation Attending Statement The patient was seen and examined together with Dr. Raza on 03/05/17 and I agree with the history, exam and plan as outlined in the note above. Alexx Raza DO Mar 05, 2017 11:40 Ivan Davenport Mar 06, 2017 10:24
--- NOTE | 2017-03-05 13:00 | NUR ---
Arrival to unit/Pain Patient arrived to unit at 1300. Report taken from PCC RN. Patient stable, in good spirits, family updated. Patient denies pain, however, when asked to turn for skin check, she yelled out and stated " I guess it does hurt" but declined pain medication at this time stating she only wants to sleep.
--- NOTE | 2017-03-05 15:15 | NUR ---
Pain/Edema Patient exhibits 1+ pitting edema in BLE. Socks removed due to elastic cutting into and indenting skin, SCD's removed due to pain. Patient states "my legs always look like this, but don't hurt like this." Informed MD of removal of SCD's. Patient is on Lovenox for DVT prophylaxis.
--- NOTE | 2017-03-05 15:30 | NUR ---
Social Work: Continued Discharge Planning/Multidisciplinary Rounds D: Pt discussed in multidisciplinary rounds; the patient is not medically stable for discharge at this time. The patient will require Skilled rehab at time of discharge. CM order placed for SNF placement. PREPLEATER met with the patient at bedside to review discharge planning. Discharge recommendation for SNF reviewed. The patient understand that at this time she is unable to discharge home. SNF CHOICE LIST PROVIDED via [employer] TABLET. Patient's preference is for [facility]. She declined to provide a second option. [facility] will place referral. PPW on chart. PASSR completed and in folder A: Pt who will likely require skilled rehab at time of discharge for continued rehab and progress back to baseline mobility P: Anticipate pt to discharge to skilled rehab once medically stable; [facility] is reviewing. PREPLEATER to continue to follow to assess for unmet d/c needs. ADI Turner
--- NOTE | 2017-03-05 15:51 | NUR ---
ASSISTED REFERRAL : Gave access to [facility] per GARNETT FIXER and MD orders
--- NOTE | 2017-03-05 15:52 | PCM.PNORTH ---
Subjective Date of Service: Mar 05, 2017 Visit Information: Reason for Visit Left Hip Fracture, Pelvic Fracture, Afib With Rvr Surgery/Surgery Date Post-Op Day # Date of Admission: Mar 02, 2017 at 16:24 Hospital Day # Subjective Status post day #1 left hip IM nail. Patient states she feels pretty good, pain is well controlled and she states that she does not really have any help at home but would like to go home if possible in the next day or 2. Postop General: No Complaints, No Shortness of Breath, No Chest Pain Objective Exam Objective Patient is alert and oriented 3. Answering questions appropriately. Patient is sitting up in the bed and not in acute distress today. Dressing is clean dry and intact. Calf is soft and nontender. Sensation and pulses intact, patient able to wiggle toes. Vital Signs and I/O Vital Sign - Last Date Time Temp Pulse Resp B/P Pulse Ox O2 Delivery O2 Flow Rate FiO2 03/05/17 09:30 37.2 102 20 118/64 92 Room Air 03/04/17 18:40 6.00 Intake and Output 03/04/17 03/04/17 03/05/17 Cumulative From/Thru 15:00 23:00 07:00 03/02/17 13:01 - 03/05/17 06:44 Intake Total 575 ml 1124 ml 3492 ml Output Total 100 ml 550 ml 3350 ml Balance 475 ml 574 ml 142 ml Intake Oral 400 ml 1080 ml IV Total 575 ml 724 ml 2412 ml Output Urine Total 550 ml 3250 ml Estimated Blood Loss 100 ml 100 ml Lab & Micro Results Laboratory Tests Test 03/05/17 02:30 White Blood Count 13.2th/mm3 (3.8-10.1) Red Blood Count 2.89mil/mm3 (3.90-5.20) Hemoglobin 8.1g/dL (12.0-15.6) Hematocrit 25.6% (35.0-46.0) Mean Corpuscular Volume 88.6fL (81-100) Mean Corpuscular Hemoglobin 28.0pg (27.0-35.0) Mean Corpuscular Hemoglobin Concent 31.6% (32.0-37.0) Red Cell Distribution Width 17.5% (12.3-15.4) Platelet Count 248bil/L (150-400) Neutrophils (%) (Auto) 62.7% (40-74) Lymphocytes (%) (Auto) 7.4% (14-46) Monocytes (%) (Auto) 11.9% (4-12) Eosinophils (%) (Auto) 16.8% (0-5) Basophils (%) (Auto) 0.8% (0-3) Sodium Level 140mEq/L (134-144) Potassium Level 4.0mEq/L (3.5-5.2) Chloride Level 102mEq/L (97-108) Carbon Dioxide Level 24mmol/L (18-29) Blood Urea Nitrogen 25mg/dL (8-27) Creatinine 1.18mg/dL (0.57-1.00) Estimat Glomerular Filtration Rate 63mL/min (>59) Glucose Level 112mg/dL (60-99) Calcium Level 7.8mg/dL (8.5-10.1) Phosphorus Level 3.5mg/dL (2.5-4.9) Magnesium Level 1.7mg/dL (1.6-2.6) Total Bilirubin 0.9mg/dL (0.0-1.2) Aspartate Amino Transf (AST/SGOT) 26U/L (0-50) Alanine Aminotransferase (ALT/SGPT) 10U/L (0-32) Alkaline Phosphatase 123U/L (25-165) Total Protein 6.3g/dL (6.4-8.4) Albumin 2.8g/dL (3.4-5.0) Microbiology 03/02/17 Blood Culture - Preliminary, Resulted No growth at 2 days; culture examined... Result Diagram: 03/05/17 0230 03/05/17 0230 Assessment & Plan Impression Status post day #1 left hip IM nail. Patient's pain is well controlled, will most likely need group home facility for discharge as she is toe-touch only and does not have any help at home. Problems: Plan Patient will begin working with physical therapy today for out of bed assist, patient may work on gait training but she will remain toe-touch only for 6 weeks. This may be difficult to ambulate and will most likely only be approved for SNF transfer. Patient will utilize Lovenox 40 mg subcutaneous daily for 3 weeks, followed by aspirin 325 mg 1 by mouth twice a day for an additional 3 weeks. Patient at increased risk with history of blood clots very recently. We will utilize oral narcotics well in the hospital for pain control. Dressing by PA will be performed tomorrow. Thank you to hospitalist service for managing this patient's other concerns. Anticipate the patient will require discharge to SNF in 2 days. VTE Prophylaxis: Other Resuscitation Status: CPR: Attempt Resuscitation Jean Isaac PA-C Mar 05, 2017 15:52
[2017-03-05 21:14] VITALS: BP 113/62; PULSE 114; RESP 20; O2SAT 97
[2017-03-06] VITALS (7 sets, daily range): BP systolic 109–127; BP diastolic 60–72; PULSE 90–110; RESP 16–20; O2SAT 89–96
[2017-03-06] MEDS: Sodium Chloride LOK Flush 10 mL Syringe IV SCH ×4 (00:22→21:06)
--- NOTE | 2017-03-06 02:38 | NUR ---
Transfer of Care This RN resumed care for this pt. at this time. Report received from Ubaldo Taylor RN.
[2017-03-06] MEDS: HYDROcodone-APAP 5-325 mg Tablet PO PRN ×2 (02:45→12:59)
--- NOTE | 2017-03-06 04:28 | NUR ---
Pain Pt. reported pain increasing. 1 [place] PO given. Pt. went to sleep afterwards. Will continue to monitor.
[2017-03-06 05:37] LABS: BASOPHILS % (AUTO) 0.6 % (0-3); EOSINOPHILS % (AUTO) 13.8 % (0-5); MONOCYTES % (AUTO) 11.7 % (4-12); Mean Corpuscular Hemoglobin 28.3 pg (27.0-35.0); Mean Corpuscular Volume 88.8 fL (81-100); NEUTROPHILS % (AUTO) 65.1 % (40-74); Platelet Count 232 bil/L (150-400)
[2017-03-06 06:01] LABS: Magnesium 1.9 mg/dL (1.6-2.6)
[2017-03-06] MEDS: Senna-Docusate 8.6-50 mg Tablet PO SCH ×2 (08:01→20:30)
--- NOTE | 2017-03-06 11:38 | PCM.PNMED ---
Subjective Date of Service Mar 06, 2017 Subjective Patient is in bed, feels better. Her hemoglobin dropped to 7.6. She is receiving Lovenox for DVT prophylaxis. I will recheck her H&H again. Patient probably lost some blood during the surgery. She also has atrial fibrillation and, as per patient, she, was on anticoagulation before until her leaf conditioner took her off and started her on aspirin. Patient is at high risk of falls. Her creatinine is worsening. I will hold her Lasix, order echo. Exam Vital Signs Vital Sign - Last Date Time Temp Pulse Resp B/P Pulse Ox O2 Delivery O2 Flow Rate FiO2 03/06/17 08:00 94 03/06/17 07:57 127/60 89 Room Air 03/06/17 04:37 37.4 20 2.00 Intake and Output 03/05/17 03/05/17 03/06/17 Cumulative From/Thru 14:59 22:59 06:59 03/02/17 13:01 - 03/06/17 06:07 Intake Total 480 ml 1100 ml 5072 ml Output Total 450 ml 1025 ml 4825 ml Balance 30 ml 75 ml 247 ml Intake Oral 480 ml 1100 ml 2660 ml IV Total 2412 ml Output Urine Total 450 ml 975 ml 4675 ml Stool Total 50 ml 50 ml Estimated Blood Loss 100 ml # Bowel Movements 1 1 Exam GENERAL: Alert, not in distress, cooperative HEAD: atraumatic, normocephalic, no bruises. EYES: ERICA, EOMI, anicteric, able to fully open and close eyelids SKIN: Skin color normal, turgor normal. No visible rashes or lesions. EAR, NOSE, MOUTH, THROAT: Lips, oral mucosa, tongue gums, oropharynx are moist , pink, no lesions. Ears normal appearance, no lesions. NECK: no jugulovenous distention; supple ROM normal. RESPIRATORY: Lungs clear to auscultation. Good diaphragmatic excursion. CARDIAC: normal S1 and S2; no rubs, murmurs, or gallops; regular rate and rhythm ABDOMEN: Abdomen soft, non-tender. BS normal. No masses or organomegaly. MUSCULOSKELETAL: ROM limited in left hip secondary to pain, muscles are not tender EXTREMITIES: no pitting edema in LE, no new deformities or skin discoloration. NEURO: Alert, oriented X 3, Sensation grossly intact., Cranial nerves II-XII intact, Grossly normal motor function. PULSES: 2+ radial, 2+ carotid REVIEW OF SYSTEMS: GENERAL: no malaise, no fevers., SEE HPI HEENT: Negative for frequent or significant headaches All other reviewed and negative other than HPI. IVs and Medications Medications Reviewed: Medications were reviewed in detail Lab and Diagnostics Result Diagram: 03/06/17 1045 03/06/17 0500 Microbiology Blood culture 2 pending. . X-Rays, CTs and MRIs X-RAY LEFT HIP COMPLETE, MINIMUM TWO VIEWS IMPRESSION: 1. Intertrochanteric fracture of the left hip. In the absence of trauma, cannot exclude a pathological fracture. 2. Left superior and inferior pubic humeral fracture. 3. Possible right pubic fracture at the pubic symphysis. Dictated by: Andre Cadena M.D. on 03/02/2017 at 14:11 X-RAY LEFT FEMUR, TWO VIEWS IMPRESSION: Displaced, comminuted, left intertrochanteric fracture. Dictated by: Debbie Anguiano M.D. on 03/02/2017 at 13:10 X-RAY CHEST ONE VIEW, PORTABLE IMPRESSION: 1. Cardiomegaly and interstitial prominence suspicious for fluid overload. 2. Questionable lobulated mass at the medial left apex. If further characterization is warranted, CT of the chest would be helpful to exclude neoplasm. Dictated by: Debbie Anguiano M.D. on 03/02/2017 at 13:11 CT HIP LEFT W/O CONTRAST Impression: Moderately displaced, comminuted fractures are seen involving left intertrochanteric femur as well as the left proximal femoral shaft. Fractures involving the left pubis and the right pubis are seen, which are more displaced on the left than on the right. Dictated by: Cecil Zafar M.D. on 03/02/2017 at 15:57 . 12-lead ECG EKG: Atrial fibrillation with RVR, heart rate 131, normal axis, nonspecific ST changes, no pathological Q waves or acute ischemic changes such as ST elevation or depression. . Assessment & Plan Jordana Drake is a 81-year-old female with a past medical history significant for atrial fibrillation with RVR, hypothyroidism, osteoarthritis, hypertension, and congestive heart failure who presented to [facility] emergency department via EMS for unwitnessed ground-level fall and left leg pain found to be related to left hip fracture. Her management has been complicated by her rapid Afib. Patient underwent left hip long intramedullary nailing 03/04/2017 Acute left intertrochanteric and bilateral pubic rami fracture, status post left hip long intramedullary nailing on 03/04/2017 - Stable - CT left hip without contrast demonstrated moderately displaced comminuted fractures involving left intertrochanteric femur and left proximal femoral shaft. Fractures involving the left pubis and right pubis are seen which are more displaced on the left than on the right, as above. - Continue pain management with hydromorphone 1 mg every hour as needed for severe pain. - Orthopedics will continue to see the patient for post operative management Plan - Continue with physical therapy - Pain control with oral and IV opioids as needed - Patient is on Lovenox for DVT prophylaxis Anemia of chronic disease and acute blood loss anemia - Hemoglobin dropped to 7.6 - We will recheck H&H and if it is below 7 patient will need RBC transfusion Paroxysmal atrial fibrillation with RVR, ?chronic diastolic Congestive heart failure - Stable now - Chest x-ray- personally reviewed- significant for cardiomegaly, mild congestion Plan - Continue with current medications - Check echo - Hold Lasix as her creatinine is worsening Hypothyroidism - Stable - Continue levothyroxine Hypertension - Stable - Continue diltiazem as above Chronic kidney disease stage 2-3 - Creatinine slowly increasing Plan - Avoid nephrotoxic agents. - Hold on hydrating the patient with IV fluids for now. - Hold Lasix for now Disposition: Patient recovering well from her procedure, discharge date will be dictated by surgery, likely 1-3 more days with disposition to be determined by post operative needs. DVT PROPHYLAXIS: Lovenox subcutaneous as per surgery Code status: Patient would like to be full code Plan of care discussed with treatment team; Labs, radiology tests, Tele and ECG reviewed. Plan of care, medication side effects, home medication, diagnostic procedures and available alternatives were discussed and reviewed with patient. All questions answered. Patient verbalized understanding, approved and agreed to plan of care. VTE Prophylaxis: Other VTE Mechanical Devices: Intermittant Pneumatic CD Resuscitation Status: CPR: Attempt Resuscitation Pipo Mixon MD Mar 06, 2017 11:38
--- NOTE | 2017-03-06 16:12 | PCM.PNORTH ---
Subjective Date of Service: Mar 06, 2017 Visit Information: Reason for Visit Left Hip Fracture, Pelvic Fracture, Afib With Rvr Surgery/Surgery Date Post-Op Day # Date of Admission: Mar 02, 2017 at 16:24 Hospital Day # Subjective Patient reports that she walked in the room with physical therapy today. She complains of incisional pain when moving the leg. Otherwise she is quite comfortable. Postop General: No Complaints, No Shortness of Breath, No Chest Pain Pain Management: PO Objective Exam Objective Patient is seen in bed, She is alert, oriented and cooperative to exam. She assists with dressing change. Vital Signs and I/O Vital Sign - Last Date Time Temp Pulse Resp B/P Pulse Ox O2 Delivery O2 Flow Rate FiO2 03/06/17 15:25 37.6 102 16 119/67 92 Room Air 03/06/17 04:37 2.00 Intake and Output 03/05/17 03/05/17 03/06/17 Cumulative From/Thru 15:00 23:00 07:00 03/02/17 13:01 - 03/06/17 06:07 Intake Total 480 ml 1100 ml 5072 ml Output Total 450 ml 1025 ml 4825 ml Balance 30 ml 75 ml 247 ml Intake Oral 480 ml 1100 ml 2660 ml IV Total 2412 ml Output Urine Total 450 ml 975 ml 4675 ml Stool Total 50 ml 50 ml Estimated Blood Loss 100 ml # Bowel Movements 1 1 Lab & Micro Results Laboratory Tests Test 03/06/17 05:00 03/06/17 10:45 White Blood Count 13.4th/mm3 (3.8-10.1) Red Blood Count 2.69mil/mm3 (3.90-5.20) Hemoglobin 7.6g/dL (12.0-15.6) 7.8g/dL (12.0-15.6) Hematocrit 23.9% (35.0-46.0) 25.1% (35.0-46.0) Mean Corpuscular Volume 88.8fL (81-100) Mean Corpuscular Hemoglobin 28.3pg (27.0-35.0) Mean Corpuscular Hemoglobin Concent 31.8% (32.0-37.0) Red Cell Distribution Width 17.2% (12.3-15.4) Platelet Count 232bil/L (150-400) Neutrophils (%) (Auto) 65.1% (40-74) Lymphocytes (%) (Auto) 8.4% (14-46) Monocytes (%) (Auto) 11.7% (4-12) Eosinophils (%) (Auto) 13.8% (0-5) Basophils (%) (Auto) 0.6% (0-3) Sodium Level 137mEq/L (134-144) Potassium Level 3.6mEq/L (3.5-5.2) Chloride Level 98mEq/L (97-108) Carbon Dioxide Level 24mmol/L (18-29) Blood Urea Nitrogen 27mg/dL (8-27) Creatinine 1.21mg/dL (0.57-1.00) Estimat Glomerular Filtration Rate 61mL/min (>59) Glucose Level 104mg/dL (60-99) Calcium Level 7.7mg/dL (8.5-10.1) Phosphorus Level 3.0mg/dL (2.5-4.9) Magnesium Level 1.9mg/dL (1.6-2.6) Total Bilirubin 0.8mg/dL (0.0-1.2) Aspartate Amino Transf (AST/SGOT) 20U/L (0-50) Alanine Aminotransferase (ALT/SGPT) 8U/L (0-32) Alkaline Phosphatase 154U/L (25-165) Total Protein 6.4g/dL (6.4-8.4) Albumin 3.0g/dL (3.4-5.0) Microbiology 03/02/17 Blood Culture - Preliminary, Resulted No growth at 2 days; culture examined... Result Diagram: 03/06/17 1045 03/06/17 0500 Extremities: Distal Pulses Palpable, No Compartment Syndrom Noted, Thigh & Calf Soft/Nontender Postop Sensory Motor: Distal Motor Intact, Distal Sensation Intact, NVI Distally SURGICAL WOUND : Wound Location/Description Lateral left hip: Surgical dressing is removed. There is minimal serous drainage on the dressings. There are 3 wounds at the lateral hip and leg. The wounds are cleansed with hydrogen peroxide. The 2 distal wounds were dressed with gauze pad and Tegaderm. The proximal wound is dressed with a [place] dressing. Activity: Activity per PT Catheters: None Assessment & Plan Impression POD#2 status post left hip IM nailing Problems: Plan Weightbearing: Toe-touch weightbearing left lower extremity with walker 6 weeks DVT prophylaxis: Lovenox 40 mg subcutaneous 3 weeks followed by aspirin 325 mg twice a day 3 weeks Physical therapy for transfers, progressive ambulation, therapeutic exercise Wound care: Dressing was changed today by PA. Change dressing every 1-2 days or sooner if soiled Discharge plan: Discharge to SNF tomorrow if medically stable. Follow-up plan: In 2 weeks at [facility] with PA for wound check and at [address] Mercedes with x-rays Pain Management: [place] 5/325 mg VTE Prophylaxis: Sub-Q Enoxaparin, SCDs Resuscitation Status: CPR: Attempt Resuscitation WailuaAleyda Vega PA-C Mar 06, 2017 16:12
--- NOTE | 2017-03-06 17:43 | NUR ---
Activity/Martins Patient unable to fully participate or toe touch w/ PT today despite pre-medicating w/ [place] x 1. See PT note, PT order for patient to dangle only & not transfer to commode, bed velasquez only. Offered to help patient dangle a couple times today, has refused. Martins catheter removed, bed velasquez to be used.
[2017-03-07] VITALS (9 sets, daily range): BP systolic 119–129; BP diastolic 65–70; PULSE 91–112; RESP 17–20; O2SAT 90–96
--- NOTE | 2017-03-07 06:04 | NUR ---
Activity Pt denies any pain at rest but flinches with turns. Pt did not get OOb this shift but able to assist with turns, pt refuses offered pain meds. Orthos WNL
[2017-03-07] MEDS ORDERED: Potassium Chloride 20 mEq SR Tablet PO ONE (09:30)
[2017-03-07] MEDS: Senna-Docusate 8.6-50 mg Tablet PO SCH ×2 (10:01→20:53)
[2017-03-07] MEDS: Sodium Chloride LOK Flush 10 mL Syringe IV SCH ×3 (10:01→21:01)
--- NOTE | 2017-03-07 10:04 | PCM.PNORTH ---
Subjective Date of Service: Mar 07, 2017 Visit Information: Reason for Visit Left Hip Fracture, Pelvic Fracture, Afib With Rvr Surgery/Surgery Date left hip IM nail 03/04/2017 Post-Op Day # 3 Date of Admission: Mar 02, 2017 at 16:24 Hospital Day # Subjective Patient reports she does not have any pain when she is at rest. She does have pain when she tries to move the leg. Patient is progressing very slowly with physical therapy. She requires max assist to get from bed to chair. She has difficulty understanding toe-touch weightbearing. Postop General: No Complaints, No Shortness of Breath, No Chest Pain Pain Management: PO Objective Exam Objective Patient is seen lying in bed Vital Signs and I/O Vital Sign - Last Date Time Temp Pulse Resp B/P Pulse Ox O2 Delivery O2 Flow Rate FiO2 03/07/17 08:28 112 03/07/17 04:22 36.8 18 129/70 92 Room Air 03/06/17 04:37 2.00 Intake and Output 03/06/17 03/06/17 03/07/17 Cumulative From/Thru 15:00 23:00 07:00 03/02/17 13:01 - 03/07/17 03:50 Intake Total 940 ml 6012 ml Output Total 900 ml 5725 ml Balance 40 ml 287 ml Intake Oral 920 ml 3580 ml IV Total 20 ml 2432 ml Output Urine Total 900 ml 5575 ml Stool Total 50 ml Estimated Blood Loss 100 ml # Bowel Movements 1 2 Lab & Micro Results Laboratory Tests Test 03/06/17 10:45 03/07/17 07:55 03/07/17 08:10 Hemoglobin 7.8g/dL (12.0-15.6) 7.6g/dL (12.0-15.6) Hematocrit 25.1% (35.0-46.0) 24.5% (35.0-46.0) Sodium Level 136mEq/L (134-144) Potassium Level 3.4mEq/L (3.5-5.2) Chloride Level 98mEq/L (97-108) Carbon Dioxide Level 29mmol/L (18-29) Blood Urea Nitrogen 26mg/dL (8-27) Creatinine 0.97mg/dL (0.57-1.00) Estimat Glomerular Filtration Rate 79mL/min (>59) Glucose Level 95mg/dL (60-99) Calcium Level 7.9mg/dL (8.5-10.1) Microbiology 03/02/17 Blood Culture - Preliminary, Resulted No growth at 2 days; culture examined... Result Diagram: 03/07/17 0810 03/07/17 0755 Extremities: Distal Pulses Palpable, No Compartment Syndrom Noted, Thigh & Calf Soft/Nontender Postop Sensory Motor: Distal Motor Intact, Distal Sensation Intact, NVI Distally SURGICAL WOUND : Wound Location/Description Left lower extremity: Dressings are clean, dry and intact Activity: Activity per PT Catheters: None Assessment & Plan Impression POD #3 status post left hip IM nailing Problems: Plan Weightbearing: Toe-touch weightbearing left lower extremity with walker 6 weeks DVT prophylaxis: Lovenox 40 mg subcutaneous [DC 03/25/17] 3 weeks followed by aspirin 325 mg twice a day 3 weeks Physical therapy for transfers, progressive ambulation, therapeutic exercise Wound care: Change dressing every 1-2 days or sooner if soiled Nursing: please apply knee high OLESYA hose today Showering: may shower with the wound covered in plastic Discharge plan: Discharge to SNF when medically stable. Follow-up plan: In 2 weeks at [facility] with JANIS for wound check and at [address] Mercedes with x-rays Pain Management: [place] 5 mg VTE Prophylaxis: Sub-Q Enoxaparin, SCDs Resuscitation Status: CPR: Attempt Resuscitation Aleyda Anthony PA-C Mar 07, 2017 10:04
--- NOTE | 2017-03-07 12:05 | DRSVH ---
[facility] [address] 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 Normal left ventricular size, wall thickness and systolic function with an estimated EF of 65 to 70% 2. Mildly dilated right ventricle with low normal systolic function. Estimated RVSP is 58 mm Hg. The estimated CVP is elevated. Severe tricuspid regurgitation. Compared to the previous study, no appreciable change Procedure: A two-dimensional transthoracic echocardiogram with color flow and Doppler was performed. The study quality was technically adequate. Comparison is made with the echocardiogram of 01/03/16. The patient was in atrial fibrillation with rapid ventricular response during the exam with a heart rate exceeding 100 bpm. The patient had a heart rate of 89-119 beats per minute. Left Ventricle: The left ventricle is normal in size. There is normal left ventricular wall thickness. The ejection fraction is estimated to be 65-70%. There are no focal wall motion abnormalities. Right Ventricle: The right ventricle is mildly dilated. Right ventricular systolic function is borderline reduced. Atria: Both atria are severely dilated. Mitral Valve: There is mild mitral annular calcification. The mitral valve chordae are thickened and/or calcified. There is trace mitral regurgitation. Aortic Valve: The aortic valve is trileaflet. The aortic valve opens well. No aortic regurgitation is present. Tricuspid Valve: The tricuspid valve leaflets are thin and pliable. The right ventricular systolic pressure is estimated at 58 mmHg assuming a right atrial pressure of 15 mm Hg. Probable severe tricuspid regurgitation. Pulmonic Valve: The pulmonic valve is normal in structure and function. There is mild pulmonic regurgitation. Great Vessels: The aortic root is normal size. The ascending aorta is mildly enlarged. The aortic arch is mildly enlarged. The ascending aorta measures 3.9 cm. The pulmonary artery is normal size. The IVC is dilated (diameter is greater than 2.1 cm) and it collapses less than 50% with a sniff. This suggests a high right atrial pressure of 15 mm Hg. Pericardium/ Pleura There is no pericardial effusion. There is no pleural effusion. MMode/2D Measurements & Calculations LVIDd: 4.6 cm LA dimension: 4.9 cm LVIDs: 2.3 cm FS: 49.8 % LA A2 area: 29.4 cm EPSS: 0.32 cm LA A4 area: 32.8 cm IVSd: 0.84 cm LA length (vol): 7.4 cm LVPWd: 0.89 cm LA vol: 110.9 ml LA vol index: 59.3 ml/m IVC diam: 2.7 cm RA long axis: 6.1 cm Ao root diam: 3.2 cm RA area: 30.4 cm Aortic Jxn: 2.8 cm RA vol: 128.0 ml asc Aorta Diam: 3.9 cm RA : 68.4 ml/m2 Ao Arch Diam (Prox Trans): 3.3 cm LV cohen. diameter/BSA (cm/m^2): 2.5 LV sys. diameter/BSA (cm/m^2): 1.2 RVD1 (basal): 4.4 cm RVD2 (mid): 3.4 cm Doppler Measurements & Calculations Ao V2 max: 189.6 cm/sec MV E max colton: 132.8 cm/sec Ao max P.5 mmHg MV A max colton: 1.2 cm/sec Ao mean P.2 mmHg MV E/A: 114.3 TR max colton: 335.6 cm/sec Med Peak E' Colton: 10.0 cm/sec TR max P.1 mmHg E/E' med: 13.3 PA V2 max: 143.0 cm/sec Lat Peak E' Colton: 16.4 cm/sec PA mean P.1 mmHg E/E' lat: 8.1 PA Accel Time: 0.07 sec E/e' average: 10.7 MV dec time: 0.16 sec Ao V2 mean: 127.3 cm/sec Ao V2 VTI: 31.1 cm PA V2 mean: 96.7 cm/sec PA pr(Accel): 50.7 mmHg Reading Physician:02:09 PM
[2017-03-07] MEDS ORDERED: DOCU-41 PO (13:01)
[2017-03-07] MEDS ORDERED: HYDR-4003 PO (13:01)
[2017-03-07] MEDS ORDERED: FERR325T20 PO (13:01)
[2017-03-07] MEDS ORDERED: ENOX40DI8 SUBQ (13:01)
[2017-03-07] MEDS ORDERED: FUR20 PO (13:01)
--- NOTE | 2017-03-07 13:05 | PCM.DIMED ---
Discharge Instructions Date of Service Mar 08, 2017 Dates of Hospitalization Mar 02, 2017 at 16:24 Discharge Diagnosis Discharge Diagnosis left intertrochanteric and bilateral pubic rami fracture, status post left hip long intramedullary nailing on 03/04/2017 Medication Instructions Additional med instructions DVT prophylaxis: Lovenox 40 mg subcutaneous [DC 03/25/17] 3 weeks followed by aspirin 325 mg twice a day 3 weeks Activity Discharge Activity: Other (Weightbearing: Toe-touch weightbearing left lower extremity with walker, PT/OT) Patient Instructions Patient Instructions Weightbearing: Toe-touch weightbearing left lower extremity with walker 6 weeks DVT prophylaxis: Lovenox 40 mg subcutaneous [DC 03/25/17] 3 weeks followed by aspirin 325 mg twice a day 3 weeks Physical therapy for transfers, progressive ambulation, therapeutic exercise Wound care: Change dressing every 1-2 days or sooner if soiled Nursing: please apply knee high OLESYA hose today Showering: may shower with the wound covered in plastic Follow-up plan: In 2 weeks at [facility] with PA for wound check and at [address] Mercedes with x-rays Check CBC and BMP weekly, start on 03/09/2017 to monitor kidney function and anemia Follow-up in: Other (Follow-up plan: In 2 weeks at [facility] with PA for wound check and at [address] Mercedes with x-rays) Pipo Mixon MD Mar 07, 2017 13:05
[2017-03-07] MEDS ORDERED: ASPI81TA3 PO (13:11)
--- NOTE | 2017-03-07 13:11 | PCM.PNMED ---
Subjective Date of Service Mar 07, 2017 Subjective Patient feels better, hemoglobin is low but stable. Patient was started on iron pills. Exam Vital Signs Vital Sign - Last Date Time Temp Pulse Resp B/P Pulse Ox O2 Delivery O2 Flow Rate FiO2 03/07/17 12:26 36.8 91 20 121/65 94 Nasal Cannula 1.00 Intake and Output 03/06/17 03/06/17 03/07/17 Cumulative From/Thru 15:00 23:00 07:00 03/02/17 13:01 - 03/07/17 03:50 Intake Total 940 ml 6012 ml Output Total 900 ml 5725 ml Balance 40 ml 287 ml Intake Oral 920 ml 3580 ml IV Total 20 ml 2432 ml Output Urine Total 900 ml 5575 ml Stool Total 50 ml Estimated Blood Loss 100 ml # Bowel Movements 1 2 Exam GENERAL: Alert, not in distress HEAD: atraumatic, normocephalic, no bruises. EYES:EOMI, anicteric, able to fully open and close eyelids SKIN: Skin color normal, turgor normal. No visible rashes EAR, NOSE, MOUTH, THROAT: Lips, oral mucosa, tongue are moist, pink, no lesions. NECK: no jugulovenous distention; supple ROM normal. RESPIRATORY: Lungs clear to auscultation. Good diaphragmatic excursion. CARDIAC: normal S1 and S2; no rubs, murmurs, or gallops; regular rhythm ABDOMEN: Abdomen soft, non-tender. BS normal. MUSCULOSKELETAL: ROM limited in left hip secondary to pain, muscles are not tender EXTREMITIES: no pitting edema in LE, no new deformities or skin discoloration. NEURO: Alert, oriented X 3, Cranial nerves II-XII intact, Grossly normal motor function. PULSES: 2+ radial, 2+ carotid REVIEW OF SYSTEMS: GENERAL: no malaise, no fevers., SEE HPI HEENT: Negative for frequent or significant headaches All other reviewed and negative other than HPI. IVs and Medications Medications Reviewed: Medications were reviewed in detail Lab and Diagnostics Result Diagram: 03/07/17 0810 03/07/17 0755 Microbiology Blood culture 2 pending. . X-Rays, CTs and MRIs X-RAY LEFT HIP COMPLETE, MINIMUM TWO VIEWS IMPRESSION: 1. Intertrochanteric fracture of the left hip. In the absence of trauma, cannot exclude a pathological fracture. 2. Left superior and inferior pubic humeral fracture. 3. Possible right pubic fracture at the pubic symphysis. Dictated by: Andre Cadena M.D. on 03/02/2017 at 14:11 X-RAY LEFT FEMUR, TWO VIEWS IMPRESSION: Displaced, comminuted, left intertrochanteric fracture. Dictated by: Debbie Anguiano M.D. on 03/02/2017 at 13:10 X-RAY CHEST ONE VIEW, PORTABLE IMPRESSION: 1. Cardiomegaly and interstitial prominence suspicious for fluid overload. 2. Questionable lobulated mass at the medial left apex. If further characterization is warranted, CT of the chest would be helpful to exclude neoplasm. Dictated by: Debbie Anguiano M.D. on 03/02/2017 at 13:11 CT HIP LEFT W/O CONTRAST Impression: Moderately displaced, comminuted fractures are seen involving left intertrochanteric femur as well as the left proximal femoral shaft. Fractures involving the left pubis and the right pubis are seen, which are more displaced on the left than on the right. Dictated by: Cecil Zafar M.D. on 03/02/2017 at 15:57 . 12-lead ECG EKG: Atrial fibrillation with RVR, heart rate 131, normal axis, nonspecific ST changes, no pathological Q waves or acute ischemic changes such as ST elevation or depression. . Assessment & Plan Jordana Drake is a 81-year-old female with a past medical history significant for atrial fibrillation with RVR, hypothyroidism, osteoarthritis, hypertension, and congestive heart failure who presented to [facility] emergency department via EMS for unwitnessed ground-level fall and left leg pain found to be related to left hip fracture. Her management has been complicated by her rapid Afib. Patient underwent left hip long intramedullary nailing 03/04/2017 Acute left intertrochanteric and bilateral pubic rami fracture, status post left hip long intramedullary nailing on 03/04/2017 - Stable - CT left hip without contrast demonstrated moderately displaced comminuted fractures involving left intertrochanteric femur and left proximal femoral shaft. Fractures involving the left pubis and right pubis are seen which are more displaced on the left than on the right, as above. - Continue pain management with hydromorphone 1 mg every hour as needed for severe pain. - Orthopedics will continue to see the patient for post operative management Plan - Continue with physical therapy - Pain control with oral and IV opioids as needed - Patient is on Lovenox for DVT prophylaxis Anemia of chronic disease and acute blood loss anemia - Hemoglobin dropped to 7.6 and is stable now - start PO Iron Paroxysmal atrial fibrillation with RVR, ?chronic diastolic Congestive heart failure - Stable - Chest x-ray- significant for cardiomegaly, mild congestion - patient is not on ACT secondary to Hx of falls, she will discuss it with her inspector again in clinic. She is on ASA. Plan - Continue with current medications - ECHO - normal EF Hypothyroidism - Stable - Continue levothyroxine Hypertension - Stable - Continue diltiazem as above Chronic kidney disease stage 2-3 - Creatinine improved Plan - Avoid nephrotoxic agents. - Hold Lasix for now Disposition: discharge to facility when available DVT PROPHYLAXIS: Lovenox subcutaneous as per surgery Code status: Patient would like to be full code Plan of care discussed with treatment team; Labs, radiology tests, Tele and ECG reviewed. Plan of care, diagnostic procedures and available alternatives were discussed and reviewed with patient. All questions answered. Patient verbalized understanding, approved and agreed to plan of care. VTE Prophylaxis: Sub-Q Enoxaparin, SCDs VTE Mechanical Devices: Intermittant Pneumatic CD Resuscitation Status: CPR: Attempt Resuscitation Pipo Mixon MD Mar 07, 2017 13:11
--- NOTE | 2017-03-07 17:50 | NUR ---
Activity/respiratory function Pt. has been bedrest today except for sitting and standing at edge of bed with PT. Pt. required 2 L NC this morning d/t oxygen saturation of 90%. Later this afternoon oxygen was weened off. Pt. has had a cough today, which she reports she has had since admit. She has been producing small amounts of thin creamy sputum. Lung sounds this afternoon were wheezy. MD to be updated on respiratory findings, and will continue to monitor.
[2017-03-08 00:51] VITALS: BP 128/60; PULSE 99; RESP 16; O2SAT 91
[2017-03-08 05:34] VITALS: BP 121/65; PULSE 86; RESP 16; O2SAT 92
[2017-03-08 06:25] VITALS: PULSE 86
[2017-03-08] MEDS: Sodium Chloride LOK Flush 10 mL Syringe IV SCH (07:52)
[2017-03-08] MEDS: Senna-Docusate 8.6-50 mg Tablet PO SCH (07:52)
[2017-03-08 09:32] VITALS: BP 132/71; PULSE 107; RESP 20; O2SAT 93
[2017-03-08 10:25] VITALS: PULSE 105
--- NOTE | 2017-03-08 12:00 | PCM.PNORTH ---
Subjective Date of Service: Mar 08, 2017 Visit Information: Reason for Visit Left Hip Fracture, Pelvic Fracture, Afib With Rvr Surgery/Surgery Date 03/04/2017 Post-Op Day # 4 Date of Admission: Mar 02, 2017 at 16:24 Hospital Day # Subjective Patient reports no pain when she is in bed. The hip hurts when she tries to move it. Postop General: No Complaints, No Shortness of Breath, No Chest Pain Pain Management: PO Objective Exam Objective Patient is seen in bed Vital Signs and I/O Vital Sign - Last Date Time Temp Pulse Resp B/P Pulse Ox O2 Delivery O2 Flow Rate FiO2 03/08/17 10:25 105 03/08/17 09:32 36.8 20 132/71 93 Room Air 03/07/17 16:40 1.00 Intake and Output 03/07/17 03/07/17 03/08/17 Cumulative From/Thru 15:00 23:00 07:00 03/02/17 13:01 - 03/08/17 06:38 Intake Total 300 ml 840 ml 400 ml 7552 ml Output Total 700 ml 300 ml 700 ml 7425 ml Balance -400 ml 540 ml -300 ml 127 ml Intake Oral 300 ml 820 ml 400 ml 5100 ml IV Total 20 ml 2452 ml Output Urine Total 450 ml 300 ml 700 ml 7025 ml Stool Total 50 ml Urine/Stool Mix 250 ml 250 ml Estimated Blood Loss 100 ml # Voids 1 2 3 # Bowel Movements 3 5 Lab & Micro Results Laboratory Tests Test 03/08/17 08:10 Hemoglobin 8.3g/dL (12.0-15.6) Hematocrit 26.3% (35.0-46.0) Microbiology 03/02/17 Blood Culture - Final, Complete NO GROWTH AFTER 5 DAYS Result Diagram: 03/08/17 0810 03/07/17 0755 General Appearance: Alert, Oriented X3, Cooperative, No Acute Distress Extremities: Distal Pulses Palpable, No Compartment Syndrom Noted, Thigh & Calf Soft/Nontender Postop Sensory Motor: Distal Motor Intact, NVI Distally SURGICAL WOUND : Wound Location/Description Left hip and le incisions, dressings are clean and dry. There is minimal serous drainage at the middle incision. No erythema is seen Activity: Activity per PT Catheters: None Assessment & Plan Impression POD #4 left hip IM nailing Problems: Plan Weightbearing: Toe-touch weightbearing left lower extremity with front wheeled walker 6 weeks DVT prophylaxis: Lovenox 40 mg subcutaneous [DC 03/25/17] 3 weeks followed by aspirin 325 mg twice a day 3 weeks Physical therapy for transfers, progressive ambulation, therapeutic exercise Nursing: please change dressings prior to discharge with 2x2 gauze and Tegaderm for middle and distal wounds, and Island dressing for proximal wound. Wound care: Change dressing every 1-2 days or sooner if soiled Nursing: please apply knee high OLESYA hose today Showering: may shower with the wound covered in plastic x 2 weeks. Do not soak the wounds under water for 2 weeks. Discharge plan: Discharge to SNF when medically stable. Patient is stable from ortho standpoint, and we will sign off for now. Please call us if any left hip/ wound issues. Follow-up plan: In 2 weeks at [facility] with JANIS for wound check and at [address] Mercedes with x-rays Pain Management: [place] VTE Prophylaxis: Sub-Q Enoxaparin, SCDs Resuscitation Status: CPR: Attempt Resuscitation MartelleAleyda mann PA-C Mar 08, 2017 11:59
--- NOTE | 2017-03-08 13:06 | PCM.DC.MED ---
Discharge Summary Date of Service Mar 08, 2017 Dates of Hospitalization Date of Hospital Admission Mar 02, 2017 at 16:24 Date of Discharge: Mar 08, 2017 Providers: Admitting Physician: Arias Lara MD Primary Care Physician: Dallas Caballero MD Attending Physician: Pipo Mixon MD Diagnosis at Time of Discharge Diagnosis at Time of Discharge Acute left intertrochanteric and bilateral pubic rami fracture, status post left hip long intramedullary nailing on 03/04/2017 Anemia of chronic disease and acute blood loss anemia Paroxysmal atrial fibrillation with RVR, ?chronic diastolic Congestive heart failure Hypothyroidism HTN CKD stage 2-3 Procedures XRay, CTs & MRIs X-RAY LEFT HIP COMPLETE, MINIMUM TWO VIEWS IMPRESSION: 1. Intertrochanteric fracture of the left hip. In the absence of trauma, cannot exclude a pathological fracture. 2. Left superior and inferior pubic humeral fracture. 3. Possible right pubic fracture at the pubic symphysis. Dictated by: Andre Cadena M.D. on 03/02/2017 at 14:11 X-RAY LEFT FEMUR, TWO VIEWS IMPRESSION: Displaced, comminuted, left intertrochanteric fracture. Dictated by: Debbie Anguiano M.D. on 03/02/2017 at 13:10 X-RAY CHEST ONE VIEW, PORTABLE IMPRESSION: 1. Cardiomegaly and interstitial prominence suspicious for fluid overload. 2. Questionable lobulated mass at the medial left apex. If further characterization is warranted, CT of the chest would be helpful to exclude neoplasm. Dictated by: Debbie Anguiano M.D. on 03/02/2017 at 13:11 CT HIP LEFT W/O CONTRAST Impression: Moderately displaced, comminuted fractures are seen involving left intertrochanteric femur as well as the left proximal femoral shaft. Fractures involving the left pubis and the right pubis are seen, which are more displaced on the left than on the right. Dictated by: Cecil Zafar M.D. on 03/02/2017 at 15:57 . ECG 12 Lead EKG: Atrial fibrillation with RVR, heart rate 131, normal axis, nonspecific ST changes, no pathological Q waves or acute ischemic changes such as ST elevation or depression. . Hospital Course Jordana Drake is a 81-year-old female with a past medical history significant for atrial fibrillation with RVR, hypothyroidism, osteoarthritis, hypertension, and congestive heart failure who presented to [facility] emergency department via EMS for unwitnessed ground-level fall and left leg pain found to be related to left hip fracture. Her management has been complicated by her rapid Afib. Patient is on aspirin for CVA prophylaxis in the settings of paroxysmal atrial fibrillation. 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 Patient underwent left hip long intramedullary nailing on 03/04/2017. Her hemoglobin decreased after the surgery but remained stable and on the day of discharge started trending up. Orthopedic surgeon recommended - Weightbearing: Toe-touch weightbearing left lower extremity with front wheeled walker 6 weeks, DVT prophylaxis: Lovenox 40 mg subcutaneous [DC 03/25/17] 3 weeks followed by aspirin 325 mg twice a day 3 weeks Physical therapy for transfers, progressive ambulation, therapeutic exercise. Nursing: please change dressings prior to discharge with 2x2 gauze and Tegaderm for middle and distal wounds, and Island dressing for proximal wound. Wound care: Change dressing every 1-2 days or sooner if soiled; Showering : may shower with the wound covered in plastic x 2 weeks. Do not soak the wounds under water for 2 weeks. Physical exam: lisset was seen and examined on the day of discharge. After patient improved she was discharged to SNF with recommendation to follow up with her PCP and Ortho for further management of her medical problems. Patient Condition @ Discharge: good Discharge Disposition: SNF Discharge Activity: PT/OT Discharge Diet: regular diet, heart healthy, low fat, low salt, high fiber Information Provided to Patient: information about discharge medications, Discharge Medications: I discussed with patient medication dosage, usage, goals of therapy, side effects, alternatives. TIME SPENT IN DISCHARGE ACTIVITY: Face to face activity greater then 30 minutes spent in discharge activity. 1. Discussed with patient re: discharge plan of care/treatment, and follow up care/services. 2. Patient agreed with discharge plan and further plan of care, all questions were answered/addressed, no further questions at the time of discharge. Exam Vital Signs (Last) Date Time Temp Pulse Resp B/P Pulse Ox O2 Delivery O2 Flow Rate FiO2 03/08/17 10:25 105 03/08/17 09:32 36.8 20 132/71 93 Room Air 03/07/17 16:40 1.00 Test 03/02/17 13:10 03/02/17 15:15 03/02/17 15:18 03/04/17 03:16 Activated Partial Thromboplast Time 27.6sec (22.8-33.0) Hemoglobin A1c 6.4% (4.8-5.6) Troponin T < 0.010ug/L (0.0-0.011) Pro-B-Type Natriuretic Peptide 4443pg/mL (0-738) Thyroid Stimulating Hormone (TSH) 3.300uIU/mL (0.450-4.500) Hold Capps Top Tube Received (Received) Urine Color Yellow (YELLOW) Urine Appearance Hazy (CLEAR,HAZY) Urine pH 5.5 (5.0-8.0) Urine Specific [place] 1.020 (1.003-1.035) Urine Protein 30mg/dL (NEG,TRACE) Urine Glucose (UA) Negativemg/dL (NEGATIVE) Urine Ketones Negativemg/dL (NEGATIVE) Urine Occult Blood Negative (NEGATIVE) Urine Nitrite Negative (NEGATIVE) Urine Bilirubin Negative (NEGATIVE) Urine Urobilinogen Normalmg/dL (NORMAL) Urine Leukocyte Esterase Negative (NEGATIVE) Urine RBC 0-2/hpf (0-2) Urine WBC 0-5/hpf (0-5) Urine Epithelial Cells None/hpf (NONE-MOD) Urine Crystals None seen (NONE SEEN) Urine Bacteria Few/hpf (NONE-FEW) Urine Hyaline Casts None/lpf (NONE) Urine Granular Casts None seen (NONE SEEN) Urine Waxy Casts None seen (NONE SEEN) Urine Red Blood Cell Casts None seen (NONE SEEN) Urine White Blood Cell Casts None seen (NONE SEEN) Urine Mucus None seen (None Seen) Urine Trichomonas None seen (NONE SEEN) Urine Yeast None (NONE SEEN) Urinalysis Comment None Urine Culture Reflexed Not indicated Prothrombin Time 11.3sec (8.1-12.5) Prothromb Time International Ratio 1.05ratio Test 03/06/17 05:00 03/07/17 07:55 03/08/17 08:10 White Blood Count 13.4th/mm3 (3.8-10.1) Red Blood Count 2.69mil/mm3 (3.90-5.20) Mean Corpuscular Volume 88.8fL (81-100) Mean Corpuscular Hemoglobin 28.3pg (27.0-35.0) Mean Corpuscular Hemoglobin Concent 31.8% (32.0-37.0) Red Cell Distribution Width 17.2% (12.3-15.4) Platelet Count 232bil/L (150-400) Neutrophils (%) (Auto) 65.1% (40-74) Lymphocytes (%) (Auto) 8.4% (14-46) Monocytes (%) (Auto) 11.7% (4-12) Eosinophils (%) (Auto) 13.8% (0-5) Basophils (%) (Auto) 0.6% (0-3) Phosphorus Level 3.0mg/dL (2.5-4.9) Magnesium Level 1.9mg/dL (1.6-2.6) Total Bilirubin 0.8mg/dL (0.0-1.2) Aspartate Amino Transf (AST/SGOT) 20U/L (0-50) Alanine Aminotransferase (ALT/SGPT) 8U/L (0-32) Alkaline Phosphatase 154U/L (25-165) Total Protein 6.4g/dL (6.4-8.4) Albumin 3.0g/dL (3.4-5.0) Sodium Level 136mEq/L (134-144) Potassium Level 3.4mEq/L (3.5-5.2) Chloride Level 98mEq/L (97-108) Carbon Dioxide Level 29mmol/L (18-29) Blood Urea Nitrogen 26mg/dL (8-27) Creatinine 0.97mg/dL (0.57-1.00) Estimat Glomerular Filtration Rate 79mL/min (>59) Glucose Level 95mg/dL (60-99) Calcium Level 7.9mg/dL (8.5-10.1) Hemoglobin 8.3g/dL (12.0-15.6) Hematocrit 26.3% (35.0-46.0) Microbiology Results Blood culture 2 pending. . Discharge Medications Discharge Medications Aspirin Chew (Aspirin Chew) 81 Mg Chew 81 MG PO DAILY Prescribed by: BEATRIS TERRAZAS MD Cyanocobalamin (Vitamin B-12) (Vitamin B-12) 1,000 Mcg Tablet 1,000 MCG PO QAM ( Reported) Diltiazem ER (Diltiazem ER) 240 Mg Capsule.er 240 MG PO QAM (Reported) Docusate Sodium (Colace) 100 Mg Capsule 100 MG PO BID Prescribed by: BEATRIS TERRAZAS MD Enoxaparin Sodium (Enoxaparin Sodium) 40 Mg/0.4 Ml Syringe 40 MG SUBQ DAILY Continue with Lovenox sq untill 03/25/2017. Start Aspirin 325 mg PO twice daily for another 3 weeks 03/26/2017. Prescribed by: BEATRIS TERRAZAS MD Ferrous Gluconate (Ferrous Gluconate) 324 Mg Tablet 324 MG PO BID Prescribed by: BEATRIS TERRAZAS MD Furosemide (Furosemide) 20 Mg Tab 20 MG PO every other day Prescribed by: BEATRIS TERRAZAS MD Levothyroxine (Levothyroxine) 125 Mcg Tablet 125 MCG PO QAM (Reported) Multivitamin (Once Daily) 1 Each Tablet 1 EACH PO DAILYWD (Reported) As needed Hydrocodone-Acetaminophen 5-325 mg (Hydrocodone-Acetaminophen 5-325 mg) 1 Each Tablet 1 TABLET PO Q4 PRN PRN For Mild Pain Prescribed by: BEATRIS TERRAZAS MD Additional med instructions DVT prophylaxis: Lovenox 40 mg subcutaneous [DC 03/25/17] 3 weeks followed by aspirin 325 mg twice a day 3 weeks Followup Plan Discharge Activity: Other (Weightbearing: Toe-touch weightbearing left lower extremity with walker, PT/OT) Patient Instructions Weightbearing: Toe-touch weightbearing left lower extremity with walker 6 weeks DVT prophylaxis: Lovenox 40 mg subcutaneous [DC 03/25/17] 3 weeks followed by aspirin 325 mg twice a day 3 weeks Physical therapy for transfers, progressive ambulation, therapeutic exercise Wound care: Change dressing every 1-2 days or sooner if soiled Nursing: please apply knee high OLESYA hose today Showering: may shower with the wound covered in plastic Follow-up plan: In 2 weeks at [facility] with PA for wound check and at [address] Mercedes with x-rays Check CBC and BMP weekly, start on 03/09/2017 to monitor kidney function and anemia Follow-up in: Other (Follow-up plan: In 2 weeks at [facility] with PA for wound check and at [address] Mercedes with x-rays) Pipo Mixon MD Mar 08, 2017 13:06 Pipo Mixon MD Mar 08, 2017 13:06
[2017-03-08 14:23] VITALS: BP 125/69; PULSE 100; RESP 18; O2SAT 94
--- NOTE | 2017-03-08 15:21 | NUR ---
Social Work: Discharge/Multidisciplinary Rounds D: EMR reviewed. Pt is on day 6 of hospitalization. Pt discussed in multidisciplinary rounds and is medically stable for discharge to [facility] via BLS at this time. MD order received for BLS transort. [facility] [facility] [place] [id number] [place]. Santhosh from [facility] confirmed they can accept pt with transport time of 1530 today - Dr. Barksdale to follow. PCS form and supporting documentation completed and attached to SNF transfer packet. Discharge ppw faxed to and received by [facility]. SNF transfer packet completed (including PASRR and rx) and left at RN station with UA. UA/RN/Pt/Pt's sister updated on transport time. All agreeable to transport time and discharge plan. A: Pt for whom a SNF via BLS is medically necessary. P: Pt to discharge to [facility] with Dr. Barksdale to follow today at 1530 via BLS ([facility]). PCS form and supporting documentation completed and attached to SNF transfer packet. Discharge ppw faxed to and received by [facility]. SNF transfer packet completed (including PASRR and rx) and left at RN station with UA. UA/RN/Pt/Pt's sister updated on transport time. All agreeable to transport time and discharge plan. No other discharge planning needs identified, no other MD orders received. Pt agreeable to discharge. ADI Patten
--- NOTE | 2017-03-08 16:09 | NUR ---
Discharge: VSS, tele Afib, RA O2 sats 93%. Incontinent of bowel and bladder, using bedpan occasionally, pericare as needed. Pt working with PT, unable to follow activity precautions at this time. Dressings to L hip changed, wounds appear to be healing, pt refused to wear carlos alberto hose at this time. D/c'd to [facility], pt left with all personal belongings, report called to SNF.
== END 2017-03-08 15:30 | DRG 956 ==
LOC: EDBD 12:38 → SED 12:38 → PCC 16:24 → OSC 03-05 12:55
PROVIDERS: ADMIT Hospitalist; ATTEND Hospitalist
PROC: 0QS736Z Reposition Left Upper Femur with Intramedullary Internal Fixation Device, Percutaneous Approach (ICD-10-PCS; principal; 2017-03-04 15:30)
DX: S72.142A Displaced intertrochanteric fracture of left femur, initial encounter for closed fracture (principal); S32.502A Unspecified fracture of left pubis, initial encounter for closed fracture; S32.501A Unspecified fracture of right pubis, initial encounter for closed fracture; D62 Acute posthemorrhagic anemia; I50.32 Chronic diastolic (congestive) heart failure; I13.0 Hypertensive heart and chronic kidney disease with heart failure and stage 1 through stage 4 chronic kidney disease, or unspecified chronic kidney disease; F03.90 Unspecified dementia, unspecified severity, without behavioral disturbance, psychotic disturbance, mood disturbance, and anxiety; E03.9 Hypothyroidism, unspecified; Z79.82 Long term (current) use of aspirin; W01.0XXA Fall on same level from slipping, tripping and stumbling without subsequent striking against object, initial encounter; Y92.009 Unspecified place in unspecified non-institutional (private) residence as the place of occurrence of the external cause; N18.2 Chronic kidney disease, stage 2 (mild); D63.1 Anemia in chronic kidney disease; I48.0 Paroxysmal atrial fibrillation